=== PATIENT | female | born 1955 | race Caucasian/White ===

== ENCOUNTER 2021-05-25 15:02 | Outpatient (REF) | payer OTHER, SELFPAY ==
--- NOTE | ~2021-05-25 | XR_ITS ---
EXAMINATION: XR CERVICAL SPINE CLINICAL INFORMATION: Neck pain COMPARISON: Cervical spine x-rays 11/11/2014 TECHNIQUE: 4 views of the cervical spine were obtained. FINDINGS: The cervical spine is visualized in its entirety. Similar minimal anterolisthesis of C4 on C5. Alignment is otherwise unremarkable. Normal C1/C2 articulation. Cervical vertebral body heights are maintained. Moderately decreased disc space heights are C5/C6 and C6/C7. Small anterior osteophytes within the mid and lower cervical spine. No prevertebral soft tissue swelling. Visualized lung apices are well aerated. XR/XR cervical spine 3V IMPRESSION: Mild to moderate degenerative changes of the cervical spine.
[2021-05-25 15:37] LABS: MANUAL DIFF FLAG NO
[2021-05-25 16:15] LABS: Basophils Absolute Auto 0.1 X10*3/uL (0.0-0.2); Basophils Percent Auto 0.7 % (0-2); Eosinophils Absolute Auto 0.2 X10*3/uL (0.0-0.4); Hematocrit 39.8 % (37.0-47.0); Hemoglobin 13.1 g/dl (12.0-16.0); Imm Gran Abs Auto 0.02 X10*3/uL (0.00-0.03); Imm Gran Pct Auto 0.2 % (0.0-0.4); Lymphocytes Absolute Auto 2.1 X10*3/uL (1.2-4.9); Lymphocytes Percent Auto 25.4 % (20-40); Mean Corpuscular HGB Conc 32.9 g/dl (31.0-35.0); Mean Corpuscular Hemoglobin 34.9 pg (27.0-33.0); Mean Corpuscular Volume 106.1 fL (80.0-98.0); Mean Platelet Volume 10.3 fL (9.4-12.3); Monocytes Absolute Auto 0.9 X10*3/uL (0.1-1.2); Monocytes Percent Auto 10.6 % (2-11); Neutrophils Absolute Auto 5.1 x10*3/uL (2.0-8.3); Neutrophils Percent Auto 61.1 % (45-73); Platelet Count 313 X10*3/uL (160-400); Red Blood Count 3.75 X10*6/uL (4.20-5.50); Red Cell Distribution Width 11.7 % (11.0-16.0); White Blood Count 8.4 X10*3/uL (4.8-10.8)
[2021-05-25 16:19] LABS: Appearance Urine CLEAR; Color Urine YELLOW; Glucose Urine UA NEG (NEG); Leukocyte Esterase Urine NEG (NEG); Nitrite Urine NEG (NEG); Urine Blood 1+ (NEG); Urine Ketones 5 MG/DL (NEG); Urine Protein TRACE MG/DL (NEG-TRACE)
[2021-05-25 16:27] LABS: Amorphous Sediment Urine TRACE /LPF; Mucus Urine 1+ /LPF; Squamous Epithelial Cell Urine 1+ /LPF; Tyrosine Crystal Urine TRACE /LPF
[2021-05-25 16:28] LABS: WBC Urine 0-2 /HPF (0-4)
[2021-05-25 16:46] LABS: Alanine Aminotransferase 28 U/L (0-31); Albumin Level 4.6 g/dL (3.5-5.0); Alkaline Phosphatase 65 U/L (39-117); Anion Gap 17 (12-20); Aspartate Amino Transferase 34 U/L (5-31); Bilirubin Total 0.6 mg/dL (0.0-1.0); Blood Urea Nitrogen 16 mg/dL (9-16); Carbon Dioxide 26 mmol/L (22-29); Chloride 98 mmol/L (96-108); Cholesterol 249 mg/dL; Estimated Glomerular Filt Rate > 60; Glucose Random 95 mg/dL (60-115); Potassium 4.8 mmol/L (3.3-5.1); Sodium 136 mmol/L (135-145); Total Protein 7.5 g/dL (6.5-8.0)
[2021-05-25 17:00] LABS: Calcium 10.7 mg/dL (8.4-10.2)
== END 2021-05-25 15:03 | disposition home or self-care (01) ==
LOC: HO.XRAY 15:02
PROVIDERS: PCP Internal Medicine; Visit Provider Internal Medicine
DX: Z00.00 Encounter for general adult medical examination without abnormal findings (principal); M54.2 Cervicalgia; Z87.891 Personal history of nicotine dependence
CPT/HCPCS: 36415; 72040; 80053; 81001; 82465; 85025

== ENCOUNTER 2021-05-27 11:17 | Outpatient (REF) | payer OTHER, SELFPAY ==
[2021-05-27 12:40] LABS: Anion Gap 19 (12-20); Blood Urea Nitrogen 16 mg/dL (9-16); C Reactive Protein 7.82 mg/dL (< or = 0.50); Calcium 10.8 mg/dL (8.4-10.2); Carbon Dioxide 25 mmol/L (22-29); Chloride 104 mmol/L (96-108); Cholesterol 268 mg/dL; Estimated Glomerular Filt Rate > 60; Glucose Fasting 103 mg/dL (60-99); HDL Cholesterol 140 mg/dL; LDL Cholesterol Calculated 115 mg/dl; Potassium 5.1 mmol/L (3.3-5.1); Sodium 143 mmol/L (135-145); Triglycerides 66 mg/dL
[2021-05-30 14:42] LABS: PTHI 20 pg/mL (14-64)
== END 2021-05-27 11:18 | disposition home or self-care (01) ==
LOC: HO.LAB 11:17
PROVIDERS: PCP Internal Medicine; Visit Provider Internal Medicine
DX: E78.00 Pure hypercholesterolemia, unspecified (principal); E83.52 Hypercalcemia
CPT/HCPCS: 36415; 80048; 80061; 83970; 86140

== ENCOUNTER 2021-06-23 08:43 | Outpatient (REF) | payer OTHER, SELFPAY ==
--- NOTE | ~2021-06-23 | MR_ITS ---
EXAMINATION: MR CERVICAL SPINE WITHOUT CONTRAST CLINICAL INFORMATION: Neck pain radiating to the bilateral shoulders. Abnormal C-spine x-ray. COMPARISON: Cervical spine radiograph 05/25/2021. TECHNIQUE: MRI of the cervical spine was performed using routine sequences without contrast. FINDINGS: The cervical vertebral bodies maintain normal heights. There is mild anterolisthesis of C4 on C5. Severe disc height loss is seen at C5-C6 and C6-C7. Bone marrow edema centered at the endplates is seen at C5-C6 as well as superiorly at C7. Additional fairly robust marrow edema is seen across the right-sided C5-C6 facets with periarticular edema also present. A mild amount of endplate edema is also noted at the superior endplate of T1 and at the opposing endplates of T1 and T2. The cervical cord signal appears normal. The imaged portions of the intracranial contents and extraspinal soft tissues appear normal. SPINAL LEVELS: C2-C3: No posterior disc abnormality. Severe right facet arthropathy. No spinal canal or neural foraminal stenosis. C3-C4: No posterior disc abnormality. Severe left and mild to moderate right facet arthropathy. No spinal canal or neural foraminal stenosis. C4-C5: Mild disc osteophyte complex with uncovertebral hypertrophy and severe right and mild to moderate left facet arthropathy. No spinal canal stenosis. Mild bilateral neural foraminal stenosis. C5-C6: Disc osteophyte complex resulting in mild spinal canal stenosis. Moderate to severe right and mild left facet arthropathy. Severe bilateral neural foraminal stenosis. C6-C7: Disc osteophyte complex resulting in mild spinal canal stenosis. Bilateral uncovertebral hypertrophy and mild to moderate right facet arthropathy. Mild left neural foraminal stenosis. C7-T1: No posterior disc abnormality. No spinal canal or neural foraminal stenosis. MR/MR cervical spine wo con IMPRESSION: Multilevel degenerative spondylotic changes without significant narrowing the spinal canal. Robust marrow edema seen across the right-sided C5-C6 facets with associated periarticular edema/inflammation also present. Significant subchondral marrow edema seen at C5-C6 endplates and to lesser extent at additional levels. Neural foraminal stenosis appears severe bilaterally at C5-C6.
== END 2021-06-23 08:44 | disposition home or self-care (01) ==
LOC: HO.MRI 08:43
PROVIDERS: PCP Internal Medicine; Visit Provider Internal Medicine
DX: M54.2 Cervicalgia (principal)
CPT/HCPCS: 72141

== ENCOUNTER 2022-07-04 09:12 | Outpatient (REF) | payer OTHER, SELFPAY ==
[2022-07-04 12:14] LABS: Erythrocyte Sedimentation Rate 45 MM/HR (0-20)
[2022-07-04 15:39] LABS: Anion Gap 17 (12-20); Blood Urea Nitrogen 14 mg/dL (9-16); C Reactive Protein 6.32 mg/dL (< or = 0.50); Calcium 10.2 mg/dL (8.4-10.2); Carbon Dioxide 27 mmol/L (22-29); Chloride 100 mmol/L (96-108); Cholesterol 231 mg/dL; Estimated Glomerular Filt Rate > 60; Glucose Fasting 108 mg/dL (60-99); HDL Cholesterol 113 mg/dL; LDL Cholesterol Calculated 108 mg/dl; Potassium 4.7 mmol/L (3.3-5.1); Rheumatoid Factor < 13.0 IU/mL (<15.0); Sodium 139 mmol/L (135-145); TSH reflex Free T4 1.59 uIU/mL (0.32-4.0); Triglycerides 53 mg/dL
[2022-07-05 10:48] LABS: Calcium (PTHI) 9.9 mg/dL (8.6-10.4); PTHI 33 pg/mL (16-77)
[2022-07-05 13:33] LABS: Anti Nuclear Antibody Screen NEGATIVE (NEGATIVE)
[2022-07-06 21:43] LABS: Calcium, Ionized 5.2 mg/dL (4.8-5.6)
== END 2022-07-04 09:13 | disposition home or self-care (01) ==
LOC: HO.HMGCLDS 09:12
PROVIDERS: PCP Internal Medicine; Visit Provider Internal Medicine
DX: Z00.01 Encounter for general adult medical examination with abnormal findings (principal); N95.1 Menopausal and female climacteric states; M81.0 Age-related osteoporosis without current pathological fracture; E83.52 Hypercalcemia; M25.50 Pain in unspecified joint; R79.82 Elevated C-reactive protein (CRP)
CPT/HCPCS: 36415; 80048; 80061; 82306; 82330; 83970; 84443; 85652; 86038; 86039; 86140; 86431

== ENCOUNTER → 2022-09-07 16:18 | Outpatient (BNVA) | payer OTHER, SELFPAY | PROVIDERS: PCP Internal Medicine; Visit Provider Internal Medicine Endocrinology, Diabetes & Metabolism | DX: Z13.89 Encounter for screening for other disorder (principal) ==

== ENCOUNTER 2022-10-10 12:48 | Outpatient (REF) | payer OTHER, SELFPAY ==
--- NOTE | ~2022-10-10 | XR_ITS ---
X-ray bilateral wrists/hands CLINICAL HISTORY: Rheumatoid arthritis. COMPARISON: Radiograph of the left hand 02/16/2012. TECHNIQUE: 4 views of each wrist/hand were obtained. FINDINGS: Right wrist/hand: No acute fractures or subluxation. Moderate joint space narrowing with subcortical sclerosis of the fifth DIP joint with equivocal marginal erosions. Mild joint space narrowing with subcortical sclerosis of the first CMC joint and triscaphe space. Osteophytes noted in the distal third metacarpal. No erosions. No chondrocalcinosis. Left hand/wrist: No acute fractures or subluxation. Mild joint space narrowing and subcortical sclerosis with subtle marginal erosions of the fifth DIP joint. Mild joint space narrowing and subcortical sclerosis of the first CMC joint and triscaphe space. Osteophytes noted in the distal third metacarpal and first DIP joint. In the distal No chondrocalcinosis. XR/XR hand wrist RT IMPRESSION: 1. No acute fractures or subluxation. 2. 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 Suggestion of erosive changes in the bilateral fifth DIP joints. Nonspecific overhanging osteophytes in the distal aspect of the third metacarpals, left greater than right. Constellation of findings suggests superimposed mild inflammatory osteoarthritis within a background of degenerative changes.
--- NOTE | ~2022-10-10 | XR_ITS ---
X-ray bilateral wrists/hands CLINICAL HISTORY: Rheumatoid arthritis. COMPARISON: Radiograph of the left hand 02/16/2012. TECHNIQUE: 4 views of each wrist/hand were obtained. FINDINGS: Right wrist/hand: No acute fractures or subluxation. Moderate joint space narrowing with subcortical sclerosis of the fifth DIP joint with equivocal marginal erosions. Mild joint space narrowing with subcortical sclerosis of the first CMC joint and triscaphe space. Osteophytes noted in the distal third metacarpal. No erosions. No chondrocalcinosis. Left hand/wrist: No acute fractures or subluxation. Mild joint space narrowing and subcortical sclerosis with subtle marginal erosions of the fifth DIP joint. Mild joint space narrowing and subcortical sclerosis of the first CMC joint and triscaphe space. Osteophytes noted in the distal third metacarpal and first DIP joint. In the distal No chondrocalcinosis. XR/XR hand wrist LT IMPRESSION: 1. No acute fractures or subluxation. 2. 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 Suggestion of erosive changes in the bilateral fifth DIP joints. Nonspecific overhanging osteophytes in the distal aspect of the third metacarpals, left greater than right. Constellation of findings suggests superimposed mild inflammatory osteoarthritis within a background of degenerative changes.
[2022-10-10 14:12] LABS: MANUAL DIFF FLAG NO
[2022-10-10 14:51] LABS: Basophils Absolute Auto 0.1 X10*3/uL (0.0-0.2); Basophils Percent Auto 0.9 % (0-2); Eosinophils Absolute Auto 0.3 X10*3/uL (0.0-0.4); Eosinophils Percent Auto 5.7 % (0-4); Hemoglobin 12.8 g/dl (12.0-16.0); Lymphocytes Absolute Auto 1.7 X10*3/uL (1.2-4.9); Lymphocytes Percent Auto 31.1 % (20-40); Mean Corpuscular HGB Conc 34.6 g/dl (31.0-35.0); Mean Corpuscular Hemoglobin 35.8 pg (27.0-33.0); Mean Corpuscular Volume 103.4 fL (80.0-98.0); Monocytes Absolute Auto 0.4 X10*3/uL (0.1-1.2); Monocytes Percent Auto 7.3 % (2-11); Neutrophils Absolute Auto 3.1 x10*3/uL (2.0-8.3); Platelet Count 256 X10*3/uL (160-400); Red Blood Count 3.58 X10*6/uL (4.20-5.50); Red Cell Distribution Width 11.9 % (11.0-16.0); White Blood Count 5.6 X10*3/uL (4.8-10.8)
[2022-10-10 14:57] LABS: Appearance Urine Clear; Color Urine Yellow; Glucose Urine UA Negative (Negative); Leukocyte Esterase Urine Negative (Negative); Nitrite Urine Negative (Negative); Specific Gravity - Urine 1.015 (1.005-1.025); Urine Blood Negative (Negative); Urine Ketones Negative (Negative); Urine Protein Negative (Neg-Trace)
[2022-10-10 15:01] LABS: Bacteria Urine None Seen (None Seen); Hyaline Casts Urine 0-2 /LPF (0-2); RBC Urine 0-2 /HPF (0-2); Squamous Epithelial Cell Urine 0-2 /HPF (0-2); WBC Urine 0-5 /HPF (0-5)
[2022-10-10 15:29] LABS: Total Protein Urine Random < 7 mg/dL (<12)
[2022-10-10 15:34] LABS: Alanine Aminotransferase 49 U/L (0-31); Albumin Level 4.5 g/dL (3.5-5.0); Alkaline Phosphatase 62 U/L (39-117); Anion Gap 16 (12-20); Aspartate Amino Transferase 46 U/L (5-31); Bilirubin Total 0.4 mg/dL (0.0-1.0); Blood Urea Nitrogen 15 mg/dL (9-16); C Reactive Protein 0.58 mg/dL (< or = 0.50); Calcium 9.7 mg/dL (8.4-10.2); Carbon Dioxide 23 mmol/L (22-29); Chloride 101 mmol/L (96-108); Estimated Glomerular Filt Rate > 60; Glucose Random 102 mg/dL (60-115); Phosphorus 3.8 mg/dL (2.7-4.5); Potassium 4.4 mmol/L (3.3-5.1); Sodium 136 mmol/L (135-145); Total Protein 6.6 g/dL (6.5-8.0)
[2022-10-10 15:43] LABS: Erythrocyte Sedimentation Rate 7 MM/HR (0-20)
[2022-10-10 15:58] LABS: Folate 10.8 ng/mL (> or = 4.0); Vitamin B12 1234 pg/mL (200-900)
[2022-10-11 09:09] LABS: HBc Num1 0.06 S/CO (0.00-0.79); HBsAGNum1 0.27 S/CO (0.00-0.99); Hepatitis A Antibody IgM 0.16 Index (0-0.79); Hepatitis B Core Antibody Nonreactive (Nonreactive); Hepatitis B Surface Antigen Negative (Negative); ~HepC Num1 0.06 S/CO (0.00-0.79); ~Hepatitis A Antibody IgM Nonreactive (Nonreactive); ~Hepatitis B Surface Antibody NONREACTIVE (Nonreactive); ~Hepatitis C Antibody Nonreactive (Nonreactive)
[2022-10-11 12:38] LABS: Anti DNA DS Antibody <1 IU/mL; Antibody to SS-A Antigen <1.0 NEG AI (<1.0 NEG); Antibody to SS-B Antigen <1.0 NEG AI (<1.0 NEG); SM/Ribonucleoprotein Ab <1.0 NEG AI (<1.0 NEG); Smith Protein <1.0 NEG AI (<1.0 NEG)
[2022-10-11 12:58] LABS: Lyme Abs Screen <0.90 index
[2022-10-11 13:39] LABS: Complement C3 114 mg/dL (83-193)
[2022-10-12 13:08] LABS: IgA 198 mg/dL (70-320); IgG 747 mg/dL (600-1540); IgM 62 mg/dL (50-300)
[2022-10-12 13:43] LABS: Prot Elec - Albumin 4.5 g/dL (3.8-4.8); Prot Elec - Alpha1 0.3 g/dL (0.2-0.3); Prot Elec - Alpha2 0.7 g/dL (0.5-0.9); Prot Elec - Beta 1 0.3 g/dL (0.4-0.6); Prot Elec - Beta 2 0.3 g/dL (0.2-0.5); Prot Elec - Gamma 0.7 g/dL (0.8-1.7); Prot Elec - Total Protein 6.8 g/dL (6.1-8.1)
[2022-10-12 15:34] LABS: Cyclic Citrullinated Peptide <16 UNITS
[2022-10-12 19:53] LABS: TS Negative Control Passed; TS Panel A 0; TS Panel B 3; TS Positive Control Passed; TSpotTB Negative (Negative)
[2022-10-13 10:18] LABS: Anti Nuclear Antibody Screen NEGATIVE (NEGATIVE)
[2022-10-17 13:39] LABS: DNAds, Crithidia Antibody Negative (Negative)
== END 2022-10-10 12:49 | disposition home or self-care (01) ==
LOC: HO.XRAY 12:48
PROVIDERS: Internal Medicine Endocrinology, Diabetes & Metabolism; PCP Internal Medicine; Visit Provider Student in an Organized Health Care Education/Training Program
DX: M81.0 Age-related osteoporosis without current pathological fracture (principal); M32.9 Systemic lupus erythematosus, unspecified; M06.9 Rheumatoid arthritis, unspecified; R79.82 Elevated C-reactive protein (CRP); D53.9 Nutritional anemia, unspecified; Z11.7 Encounter for testing for latent tuberculosis infection; Z11.59 Encounter for screening for other viral diseases; Z79.52 Long term (current) use of systemic steroids; Z72.89 Other problems related to lifestyle
CPT/HCPCS: 36415; 73110; 73130; 80053; 81001; 82607; 82746; 82784; 84100; 84156; 84165; 85025; 85652; 86038; 86039; 86140; 86160; 86200; 86225; 86235; 86255; 86334; 86481; 86617; 86618; 86704; 86706; 86709; 86803; 87340

== ENCOUNTER 2023-02-06 10:50 | Outpatient (AMB) | payer MEDICARE, SELFPAY ==
[2023-02-06 10:55] VITALS: BP 100/68; PULSE 96; TEMP 36.3; O2SAT 100; BMI 24.3
--- NOTE | 2023-02-06 10:55 | AM.OFFWIN_ITS ---
Intake Vital Signs 02/06/23 10:55 Height 5 ft 4 in Weight 141 lb 6 oz BMI 24.3 BP 100/68 Blood Pressure Location Rt brachial Position Sitting Pulse 96 Pulse Source Pulse Oximeter Temp 97.3 F Temp Source Temporal Artery Scan Pulse Oximetry (%) 100 Intake Visit Reasons: EP ?shingles (lobby) Intake Note: Pt is here c/o possible shingles. Patient Tobacco Use Status: Former Tobacco user (4 years ago) Allergies codeine [CODEINE] Adverse Reaction (Unknown, Unverified 02/06/23 11:28) NAUSEA & VOMITING Medication List - Last Reconciled 02/06/23 by Dylan Hampton MD loratadine (Claritin) 10 mg PO DAILY multivitamin 1 tab PO DAILY Do you need a note to return to daycare/school/sports/work: No HPI EP ?shingles (lobby) HPI Details 67-year-old female presents to the office for a sick visit. Patient re ports that she could be having shingles. She started noticing lesions on the left side of her forehead and scalp over the past week. She woke up this morning up with redness in the left eye and increased tearing. [facility] Medical History (Updated 02/06/23 @ 11:31 by Dylan Hampton MD) Elevated C-reactive protein (CRP) Hypercalcemia Osteoporosis Polyarthralgia Surgical History History of right hip replacement Hx of section Hx of tonsillectomy Family History Father Prostate cancer Bone cancer Mother Cancer Brother Mental health disorder Sister Ovarian cancer Family/Other Multiple sclerosis Social History Household Members: Spouse Household Members Other:: Housing: House Alcohol intake: current Alcohol type: wine Patient Tobacco Use Status: Former Tobacco user (4 years ago) e-Cigarette/Vaping Use: Never Used Current occupational status: employed 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 Corneas clear. Skin Other: Vesicular rash along the C2 C3 dermatome. Assessment & Plan Assessment & Plan (1) Herpes zoster: Code(s): B02.9 - Zoster without complications Plan: Valtrex called in. Fortunately patient has not in much pain. Neurontin 100 mg called in. Eye involvement has to be ruled out. An ophthalmology consult is being scheduled. Coding Level of Care Code Est Pt Level 4 (29695) Diagnoses Herpes zoster B02.9
== END 2023-02-06 11:37 | disposition home or self-care (01) ==
LOC: HO.HMGWI 10:50
PROVIDERS: PCP Internal Medicine
DX: B02.9 Zoster without complications (principal)
CPT/HCPCS: 99214

== ENCOUNTER 2023-08-13 13:57 | Outpatient (AMB) | payer MEDICARE, SELFPAY ==
[2023-08-13 14:29] VITALS: BP 124/72; PULSE 85; TEMP 36.4; O2SAT 97; BMI 26.4
--- NOTE | 2023-08-13 14:29 | MHC.OFFWIV ---
Intake Vital Signs 08/13/23 14:29 Height 5 ft 4 in Weight 154 lb BMI 26.4 BP 124/72 Blood Pressure Location Lt brachial Position Sitting Pulse 85 Pulse Source Pulse Oximeter Temp 97.5 F Temp Source Temporal Artery Scan Pulse Oximetry (%) 97 Oxygen Delivery Method Room Air Intake Visit Reasons: EP Back pain Intake Note: pt is here today for back pain started last Patient Tobacco Use Status: Former Tobacco user (4 years ago) Allergies codeine [CODEINE] Adverse Reaction (Unknown, Verified 08/13/23 14:29) NAUSEA & VOMITING Do you need a note to return to daycare/school/sports/work: No HPI HPI Comments History of Present Illness Details The patient presents to urgent care for evaluation of low back pain. She states that on she started to exercise and that night felt pain and discomfort in her right hip and lower back. She does have a hip replacement and was instructed not to do certain movements which were some of the things she was in fact doing during the day . She was sore and then slept on the couch downstairs. When she awoke she had low back pain and spasm. Patient has been using ibuprofen and then took a leave today for better pain relief. No radiation of pain down the leg no numbness or tingling no bowel or bladder dysfunction. [facility] Medical History (Updated 02/06/23 @ 11:31 by Dylan Hampton MD) Elevated C-reactive protein (CRP) Polyarthralgia Hypercalcemia Osteoporosis Surgical History History of right hip replacement Hx of tonsillectomy Hx of section Family History Father Prostate cancer Bone cancer Mother Cancer Brother Mental health disorder Sister Ovarian cancer Family/Other Multiple sclerosis Social History Household Members: Spouse Household Members Other:: Housing: House Alcohol intake: current Alcohol type: wine Patient Tobacco Use Status: Former Tobacco user (4 years ago) e-Cigarette/Vaping Use: Never Used Current occupational status: employed 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 Cognitive needs: No Hearing needs: No Vision needs: Yes Review of Systems Const Denies weakness Eyes Reports no additional complaints ENT Denies dysphagia Card Reports no additional complaints, Denies dyspnea and Denies dyspnea on exertion Resp Denies cough, Denies hemoptysis, Denies dyspnea and Denies dyspnea on exertion GI Denies dysphagia Denies urinary incontinence Musc Reports back pain, Denies muscle weakness, Denies numbness and Denies tingling Neuro Denies focal weakness, Denies numbness, Denies tingling, Denies paresthesias and Denies weakness Physical Exam Vital Signs: Last Vital Signs Temp 97.5 F 08/13/23 14:29 Pulse 85 08/13/23 14:29 BP 124/72 08/13/23 14:29 Pulse Ox 97 08/13/23 14:29 Oxygen Delivery Method Room Air 08/13/23 14:29 BMI result Body Mass Index 26.4 Const General: healthy appearing and no acute distress Orientation/consciousness: patient oriented x3 Eyes General: appearance normal, both eyes and all related structures Pupils: Equal, round and reactive pupils present Resp Effort & Inspection: normal respiratory effort and able to speak in complete sentences General: Yes no CVA tenderness Back/Spine/Pelvis Back: no CVA tenderness Thoracic/Lumbar Spine: thoracic and lumbar spine normal to inspection, paraspinal muscle tenderness (spasm of paraspinal musculature) on the right greater than left and thoraco-lumbar ROM limited Neuro General: patient oriented x3 and Normal light touch and pain sensation Cranial nerves: Yes Equal, round and reactive pupils present Results AMB Urinalysis, Automated UA Leukoctes 15 Bigg/uL Last Edit by Nidhi Feldman CMA on 08/13/23 14:50 UA Nitrite Negative Last Edit by Nidhi Feldman CMA on 08/13/23 14:50 UA Urobilinogen 0.2 mg/dL Last Edit by Nidhi Feldman CMA on 08/13/23 14:50 UA Protein 15 mg/dL Last Edit by Nidhi Feldman CMA on 08/13/23 14:50 UA pH 6.0 Last Edit by Nidhi Feldman CMA on 08/13/23 14:50 UA Blood 0 Ruddy/uL Last Edit by Nidhi Feldman CMA on 08/13/23 14:50 UA Specific [place] 1.025 Last Edit by Nidhi Feldman CMA on 08/13/23 14:50 UA Ketone Positive Last Edit by Nidhi Feldman CMA on 08/13/23 14:50 UA Bilirubin 0 mg/dL Last Edit by Nidhi Feldman CMA on 08/13/23 14:50 UA Glucose 0 mg/dL Last Edit by Nidhi Feldman CMA on 08/13/23 14:50 Results Reviewed Results Reviewed: Laboratory Last Values Urine pH (Auto) 6.0 08/13/23 14:48 Specific [place] (Auto) 1.025 08/13/23 14:48 Urine Protein (Auto) 15 mg/dL 08/13/23 14:48 Glucose (UA)(Auto) 0 mg/dL 08/13/23 14:48 Urine Ketones (Auto) Positive 08/13/23 14:48 Urine Blood (Auto) 0 Ruddy/uL 08/13/23 14:48 Urine Nitrite (Auto) Negative 08/13/23 14:48 Urine Bilirubin (Auto) 0 mg/dL 08/13/23 14:48 Urine Urobilinogen (Auto) 0.2 mg/dL 08/13/23 14:48 Leukocyte Esterase (Auto) 15 Bigg/uL 08/13/23 14:48 Assessment & Plan Assessment & Plan (1) Back pain: Code(s): M54.9 - Dorsalgia, unspecified Plan Symptoms are likely secondary to doing some exercises that patient was unfamiliar with and likely strained some muscles. Additionally this was compounded by sleeping on the couch and causing some back spasm somewhat remote from the initial discomfort. Will recommend continued use of Advil versus Aleve. Will add Flexeril and recommend treatment with lidocaine patch. Advised follow-up with PCP Orders: Orders AMB Urinalysis Automated Today Z13.9 - Encounter for screening, unspecified Medications: New cyclobenzaprine 5 mg PO TID PRN 10 tabs 0RF muscle spasm lidocaine 5% leave on most painful area for up to 12 hrs 1 patch topical DAILY 15 ea 0RF Coding Level of Care Code Est Pt Level 3 (91546) Diagnoses Back pain M54.9
== END 2023-08-13 15:37 | disposition home or self-care (01) ==
PROVIDERS: PCP Internal Medicine; Visit Provider Emergency Medicine
DX: M54.9 Dorsalgia, unspecified (principal)
CPT/HCPCS: 81003; 99213

== ENCOUNTER 2023-08-16 09:08 | Emergency (ER) | payer MEDICARE, SELFPAY ==
--- NOTE | ~2023-08-16 | XR_ITS ---
EXAMINATION: XR CHEST CLINICAL INFORMATION: Chest pain COMPARISON: None available. TECHNIQUE: 2 views of the chest were obtained. FINDINGS: Lungs grossly clear. No pleural effusions. Heart and pulmonary vessels normal. XR/XR chest 2V IMPRESSION: No active disease.
--- NOTE | ~2023-08-16 | XR_ITS ---
EXAMINATION: XR LUMBOSACRAL SPINE CLINICAL INFORMATION: Low back pain COMPARISON: None available. TECHNIQUE: Three views of the lumbosacral spine. FINDINGS: There is normal lumbar lordosis. Gradient there is grade 1 anterolisthesis L4-L5. Rest of the vertebral alignment is normal. Loss of L5-S1 disc height is noted. Rest the disc heights are normal. No acute fracture, dislocation or lytic process seen. SI joints are symmetrical and normal. The soft tissues are normal. XR/XR lumbar spine 2-3V IMPRESSION: 1. Grade 1 anterolisthesis L4 over L5. 2. Mild degenerative disc changes L5-S1 disc level. No visible acute fracture or dislocation seen.
[2023-08-16 09:25] VITALS: BP 111/59; PULSE 95; RESP 16; TEMP 36.8; O2SAT 97; BMI 26.1
[2023-08-16 13:04] VITALS: BP 115/60; PULSE 85; RESP 18; TEMP 36.9; O2SAT 95
--- NOTE | 2023-08-16 13:06 | ECG_ITS ---
Test Reason : back pain chest pain Blood Pressure : / mmHG Vent. Rate : 075 BPM Atrial Rate : 075 BPM P-R Int : 154 ms QRS Dur : 082 ms QT Int : 378 ms P-R-T Axes : 046 -02 032 degrees QTc Int : 422 ms Normal sinus rhythm Normal ECG When compared with ECG of 27-DEC-2017 16:13, No significant change was found Referred By: Liza Guzman Electronically Signed By:BRIDGETTE ALEXANDER MD
--- NOTE | 2023-08-16 13:07 | ED_ITS ---
HPI - Back Pain/Injury General Chief Complaint: Back Pain/Injury Stated Complaint: Muscle spasms all over Time Seen by Provider: 08/16/23 12:07 Source: patient and RN notes reviewed Mode of arrival: ambulatory Limitations: no limitations History of Present Illness HPI Narrative: This is a 68-year-old female, with a history of osteoporosis, presenting to the emergency department for evaluation of low back muscle spasms x1 week. Patient reports that over the course of this past week she has had muscle spasms that keep her up at night. She states that the pain starts in her back and occasionally radiates down into her bilateral hamstrings. She reports that the muscle spasms or so severe that when she is walking around she gets short of breath. She does endorse left-sided chest pain which she attributes in 2 muscle spasms this morning which radiated into her left shoulder. She denies any recent trauma or injury. She was seen at an urgent care 4 days ago and was given Flexeril which she has been taking without any relief. She denies any fevers, chills, dizziness, lightheadedness, chest pain, shortness of breath, abdominal pain, nausea, vomiting or diarrhea. She denies any urinary or bowel incontinence. No saddle anesthesia. No recent changes in weight, or night sweats. No other complaints or concerns at this time. MD elicited complaint: back pain Similar Symptoms Previously: No Quality: spasming Location: lumbar spine Radiation: buttocks, left upper leg and right upper leg Exacerbating factors: movement Relieving factors: immobilization Associated symptoms: weakness and fatigue Related Data Home Medications Medication Instructions Recorded Confirmed loratadine 10 mg tablet (Claritin) 10 mg PO DAILY 06/23/22 multivitamin 1 tab PO DAILY 06/23/22 Previous Rx's Medication Instructions Recorded cyclobenzaprine 5 mg tablet 5 mg PO TID PRN muscle spasm #10 08/13/23 tabs lidocaine 5 % topical patch 1 patch topical DAILY #15 ea 08/13/23 lidocaine 5 % topical patch 1 patch topical DAILY #30 ea 08/16/23 methocarbamol 750 mg tablet 1,500 mg (2 x 750 mg) PO Q8H 72 08/16/23 hours #18 tabs prednisone 20 mg tablet 40 mg (2 x 20 mg) PO DAILY 5 days 08/16/23 #10 tabs Allergies Allergy/AdvReac Type Severity Reaction Status Date / Time codeine [CODEINE] AdvReac Unknown NAUSEA & Verified 08/13/23 14:29 VOMITING Review of Systems 2 Review of Systems: Yes all other systems are reviewed and are negative Constitutional: Constitutional: Reports as per [facility] Past Medical History Attestation statement: The following information was validated with the patient. Medical History Elevated C-reactive protein (CRP) Polyarthralgia Hypercalcemia Osteoporosis Surgical History History of right hip replacement Hx of tonsillectomy Hx of section Family History Family History Father Prostate cancer Bone cancer Mother Cancer Brother Mental health disorder Sister Ovarian cancer Family/Other Multiple sclerosis Social History Social History Household Members: Spouse Household Members Other:: Housing: House Alcohol intake: current Alcohol type: wine Patient Tobacco Use Status: Former Tobacco user (4 years ago) e-Cigarette/Vaping Use: Never Used Current occupational status: employed 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 Cognitive needs: No Hearing needs: No Vision needs: Yes Physical Exam 2 Vital Signs: Vital Signs: Last Vital Signs Temp 97.9 F 08/16/23 15:41 Pulse 76 08/16/23 15:41 Resp 16 08/16/23 15:41 BP 132/56 L 08/16/23 15:41 Pulse Ox 96 08/16/23 15:41 O2 Del Method Room Air 08/16/23 15:41 BMI result Body Mass Index 26.1 Const: General: cooperative, comfortable and no acute distress O rientation/consciousness: patient oriented x3 Limitations: no limitations HEENT: Head: Yes normal to inspection, Yes normocephalic and Yes atraumatic Ears: hearing grossly normal bilaterally General nose exam: Normal external nose present Face and sinus: Yes normal facial exam Mouth: Normal oral and palatal mucosa present, oropharynx normal and moist mucous membranes Throat: Yes posterior oropharynx normal Eyes: General: appearance normal, both eyes and all related structures E yelids: Yes eyelids normal Conjunctivae: conjunctivae normal Sclerae: s clerae normal Pupils: Equal, round and reactive pupils present EOM: EOMs intact bilaterally Neck: Neck: Yes normal visual inspection, Yes full ROM and Yes no lymphadenopathy Lymphatic: no lymphadenopathy noted Chest: Chest palpation & inspection: normal inspection of the chest Resp: Effort & Inspection: normal respiratory effort and able to speak in complete sentences Auscultation: clear to auscultation bilaterally, no crackles, no rales, no rhonchi and no wheezes Cardio: Rate: regular rate Rhythm: regular rhythm Heart sounds: S1 normal heart sound present and S2 normal heart sound present GI: Inspection: Yes normal to inspection Back/Spine/Pelvis: Other: Tenderness palpation along the lumbar midline spine and paraspinous muscles. Negative straight leg raise bilaterally. Distal sensation circulation intact strength 5/5 in lower extremities Skin: General skin exam: no rashes or lesions noted Trauma: no lacerations or abrasions Wounds: no wounds Neuro: General: patient oriented x3 and moves all extremities Cranial nerves: Yes Equal, round and reactive pupils present Extrem: General: Yes normal to inspection Right upper extremity: normal to inspection Left upper extremity: normal to inspection Right lower extremity: normal to inspection Left lower extremity: normal to inspection Course Reevaluation(s) Reevaluation #1: Labs returned, patient has no leukocytosis, H&H stable. No evidence of rhabdomyolysis, chemistry within normal limits, slight hyperglycemia at 1:30 a.m., calcium slightly elevated at 10.6, CPK 18, troponin less than 2.7 x 2. BNP 16. Urine with small leuk esterases, she is not experiencing any urinary symptoms, and does not appear to be infected at this time. Patient tested negative for flu, RSV, and COVID. Lumbar spine x-ray revealing Grade 1 anterolisthesis L4 over L5. As well as degenerative disc changes at L5-S1. EKG nondiagnostic. Symptoms are likely due to muscle spasms as well as degenerative disc disease with associated lumbar radiculopathy. Discussed this finding with patient. Patient discharged on prednisone, muscle relaxants. Advised to follow-up with primary care physician as she may need further workup including MRI/physical therapy. Patient given return precautions. She understands agrees with plan. Patient stable for discharge. Medications Administered Discontinued Medications Generic Name Dose Route Start Last Admin Trade Name Freq PRN Reason Stop Dose Admin Diazepam 1 mg 08/16/23 13:44 08/16/23 14:06 Diazepam 2 Mg Tablet PO 08/16/23 13:45 1 mg ONCE ONE Administration Sodium Chloride 1,000 mls @ 999 mls/hr 08/16/23 14:15 08/16/23 15:11 Ns IV 08/16/23 15:15 Infused .Q1H1M LINSEY Infusion Sodium Chloride 1,000 mls @ 999 mls/hr 08/16/23 15:35 08/16/23 16:46 Ns IV 08/16/23 16:35 Infused .Q1H1M ONE Infusion Medical Decision Making Medical Decision Making [facility] Narrative: This is a 68-year-old female, with a history of osteoporosis, presenting to the emergency department for evaluation of back pain x1 week. On arrival, vital signs within normal limits. She is nontoxic appearing. On examination, she is tenderness palpation along the lumbar midline spine and paraspinous muscles, negative straight leg raise. Patient endorses weakness in her lower extremities as well as an episode of left-sided chest pain and shoulder pain which occurred this morning. Abdomen is soft and nontender. This patient presents with back pain most consistent with lumbar spasms, however given mother symptoms, will obtain labs to rule out ZAIDA, ACS given left-sided chest pain and weakness. Presentation not consistent with malignancy (lack of history of malignancy, lack of B symptoms), fracture (no trauma), cauda equina syndrome (no bowel or urinary incontinence/retention, no saddle anesthesia), pyelonephritis (afebrile, no CVAT, no urinary symptoms). Plan: Labs, EKG, chest x-ray, lumbar x-ray, Valium p.o. Differential Diagnosis Differential Diagnoses: The differential diagnosis associated with the presentation includes See above Admission/Observation Consideration of admission/observation: Escalation of care including admission/observation considered Patient would have been admitted to the hospital had her work up had any findings where hospital admission was appropriate and her clinical presentation warranted hospital admission. Lab Data [facility] Lab Attestation statement: I reviewed the patient's lab results. See course comment 08/16/23 13:54 08/16/23 13:54 Labs: Lab Results 08/16/23 08/16/23 08/16/23 Range/Units 13:54 13:57 16:57 WBC 9.0 (4.8-10.8) X10*3/uL RBC 3.44 L (4.20-5.50) X10*6/uL Hgb 12.5 (12.0-16.0) g/dl Hct 36.4 L (37.0-47.0) % MCV 105.8 H (80.0-98.0) fL MCH 36.3 H (27.0-33.0) pg MCHC 34.3 (31.0-35.0) g/dl RDW 11.8 (11.0-16.0) % Plt Count 342 D (160-400) X10*3/uL MPV 9.5 (9.4-12.3) fL Immature Gran % (Auto) 0.4 (0.0-0.4) % Neut % (Auto) 70.5 (45-73) % Lymph % (Auto) 14.8 L (20-40) % [place] % (Auto) 12.6 H (2-11) % Eos % (Auto) 1.1 (0-4) % Baso % (Auto) 0.6 (0-2) % Lymph # (Auto) 1.3 (1.2-4.9) X10*3/uL [place] # (Auto) 1.1 (0.1-1.2) X10*3/uL Eos # (Auto) 0.1 (0.0-0.4) X10*3/uL Baso # (Auto) 0.1 (0.0-0.2) X10*3/uL Abs Immat Gran (auto) 0.04 H (0.00-0.03) X10*3/uL Absolute Neuts (auto) 6.4 (2.0-8.3) x10*3/uL Absolute Nucleated RBC 0.000 (0.0-0.012) X10*3/uL Nucleated RBC % (auto) 0.0 (0.0-0.2) /100WBC Sodium 135 (135-145) mmol/L Potassium 4.3 (3.3-5.1) mmol/L Chloride 97 (96-108) mmol/L Carbon Dioxide 26 (22-29) mmol/L Anion Gap 16 (12-20) BUN 13 (9-16) mg/dL Creatinine 0.61 (0.5-1.4) mg/dL Estim Creat Clear Calc 85.3 Estimated GFR > 60 Random Glucose 130 H (60-115) mg/dL Calcium 10.6 H D (8.4-10.2) mg/dL Magnesium 1.9 (1.6-2.6) mg/dL Total Bilirubin 0.3 (0.0-1.0) mg/dL Direct Bilirubin 0.2 (0.0-0.5) mg/dL AST 24 (5-31) U/L ALT 31 (0-31) U/L Alkaline Phosphatase 67 (39-117) U/L Total Creatine Kinase 18 L (26-140) U/L Troponin I High Sens 7.3 < 2.7 D (<3.5-17.0) ng/L B-Natriuretic Peptide 16 (<100) pg/mL Total Protein 7.9 (6.5-8.0) g/dL Albumin 4.0 (3.5-5.0) g/dL Urine Color Dark Yellow Urine Appearance Cloudy Urine pH 6.0 (5.0-9.0) Ur Specific [place] 1.020 (1.005-1.025) Urine Protein 30 (1+) H (Neg-Trace) mg/dL Urine Glucose (UA) Negative (Negative) mg/dL Urine Ketones Trace (Negative) mg/dL Urine Blood Negative (Negative) Urine Nitrite Negative (Negative) Ur Leukocyte Esterase Small (1+) H (Negative) Urine RBC 0-2 (0-2) /HPF Urine WBC 0-5 (0-5) /HPF Ur Squamous Epith Cells 6-10 (0-2) /HPF Urine Bacteria None Seen (None Seen) Hyaline Casts 11-20 (0-2) /LPF Granular Casts Present Influenza Type A (PCR) NEGATIVE (Negative) Influenza Type B (PCR) NEGATIVE (Negative) RSV RNA Qual (PCR) NEGATIVE (Negative) SARS-CoV-2 RNA (RT-PCR) NEGATIVE (Negative) Independent Interpretation I performed an independent interpretation of an: EKG Interpretation: EKG normal sinus rhythm at a ventricular rate of 75 beats per minute, no ST elevation or depression. KS interval 154, QTC 422 Radiology Impression Discussion of test interpretation with radiology: I have reviewed the radiologist's reading. Radiologist Impression: EXAMINATION: XR LUMBOSACRAL SPINE CLINICAL INFORMATION: Low back pain COMPARISON: None available. TECHNIQUE: Three views of the lumbosacral spine. FINDINGS: There is normal lumbar lordosis. Gradient there is grade 1 anterolisthesis L4-L5. Rest of the vertebral alignment is normal. Loss of L5-S1 disc height is noted. Rest the disc heights are normal. No acute fracture, dislocation or lytic process seen. SI joints are symmetrical and normal. The soft tissues are normal. XR/XR lumbar spine 2-3V IMPRESSION: 1. Grade 1 anterolisthesis L4 over L5. 2. Mild degenerative disc changes L5-S1 disc level. No visible acute fracture or dislocation seen. Dictated By: Sanket Tobias MD EXAMINATION: XR CHEST CLINICAL INFORMATION: Chest pain COMPARISON: None available. TECHNIQUE: 2 views of the chest were obtained. FINDINGS: Lungs grossly clear. No pleural effusions. Heart and pulmonary vessels normal. XR/XR chest 2V IMPRESSION: No active disease. Dictated By: Bossman Troncoso MD Discharge Plan Discharge Clinical Impression: Lumbar radiculopathy, Back pain, Anterolisthesis of lumbar spine, Degenerative disc disease at L5-S1 level Patient Disposition: Home, Self-Care Instructions: Acute Low Back Pain (ED), Muscle Spasm (ED), Back Pain (ED) Additional Instructions: You were seen in the emergency department due to muscle spasms. Your workup today was reassuring. Your x-ray of your lumbar spine does show evidence of degenerative changes as well as grade 1 anterolisthesis at L4 over L5. This is a slight disc slippage. Your EKG, chest x-ray, as well as your labs were reassuring. Please take prescribed medication as directed. Please avoid taking NSAIDs while taking prednisone as this increases irritation in your stomach lining, as well as increase his chance for bleeding. Take muscle relaxants as prescribed, please be advised that this can cause drowsiness, do not drink alcohol or drive while taking this medication. Gentle stretching, range of motion, as well as massage can also help with your symptoms. Apply lidocaine patches as needed. Do not apply ice or heat directly to the patches. Follow-up with your primary care physician as a referral to physical therapy as well as additional imaging may be warranted. If any new or worsening symptoms occur including but not limited to worsening pain, numbness and tingling into your groin, urinary or bowel incontinence, please return for re-evaluation. Prescriptions: New methocarbamol 750 mg tablet 1,500 mg PO Q8H 3 Days Qty: 18 0RF prednisone 20 mg tablet 40 mg PO DAILY 5 Days Qty: 10 0RF lidocaine 5 % adhesive patch,medicated 1 patch topical DAILY Qty: 30 0RF Rx Instructions: leave on most painful area for up to 12 hrs No Action multivitamin Tablet 1 tab PO DAILY loratadine [Claritin] 10 mg tablet 10 mg PO DAILY cyclobenzaprine 5 mg tablet 5 mg PO TID PRN (Reason: muscle spasm) Qty: 10 0RF lidocaine 5 % adhesive patch,medicated 1 patch topical DAILY Qty: 15 0RF Rx Instructions: leave on most painful area for up to 12 hrs Interventions: ED Discharge Assessment Last Done: 08/16/23 18:17 Discharge Date/Time: 08/16/23 18:24
[2023-08-16 14:05] LABS: MANUAL DIFF FLAG NO
[2023-08-16] MEDS: diazePAM 2 MG TABLET 1 MG PO (14:06)
[2023-08-16 14:07] LABS: Appearance Urine Cloudy; Color Urine Dark Yellow; Glucose Urine UA Negative (Negative); Leukocyte Esterase Urine Small (1+) (Negative); Nitrite Urine Negative (Negative); UMIC TRIGGER UACC YES; Urine Blood Negative (Negative); Urine Ketones Trace mg/dL (Negative); Urine Protein 30 (1+) mg/dL (Neg-Trace)
[2023-08-16] MEDS: 0.9 % Sodium Chloride 1,000 ML 999 ML IV ×2 (14:10→15:39)
[2023-08-16 14:12] LABS: Basophils Absolute Auto 0.1 X10*3/uL (0.0-0.2); Basophils Percent Auto 0.6 % (0-2); Eosinophils Absolute Auto 0.1 X10*3/uL (0.0-0.4); Eosinophils Percent Auto 1.1 % (0-4); Hematocrit 36.4 % (37.0-47.0); Hemoglobin 12.5 g/dl (12.0-16.0); Imm Gran Abs Auto 0.04 X10*3/uL (0.00-0.03); Imm Gran Pct Auto 0.4 % (0.0-0.4); Lymphocytes Absolute Auto 1.3 X10*3/uL (1.2-4.9); Lymphocytes Percent Auto 14.8 % (20-40); Mean Corpuscular HGB Conc 34.3 g/dl (31.0-35.0); Mean Corpuscular Hemoglobin 36.3 pg (27.0-33.0); Mean Corpuscular Volume 105.8 fL (80.0-98.0); Mean Platelet Volume 9.5 fL (9.4-12.3); Monocytes Absolute Auto 1.1 X10*3/uL (0.1-1.2); Monocytes Percent Auto 12.6 % (2-11); Neutrophils Absolute Auto 6.4 x10*3/uL (2.0-8.3); Neutrophils Percent Auto 70.5 % (45-73); Platelet Count 342 X10*3/uL (160-400); Red Blood Count 3.44 X10*6/uL (4.20-5.50); Red Cell Distribution Width 11.8 % (11.0-16.0)
[2023-08-16 14:15] LABS: Bacteria Urine None Seen (None Seen); Granular Casts Urine Present; RBC Urine 0-2 /HPF (0-2); UACC Culture Trigger YES; WBC Urine 0-5 /HPF (0-5)
[2023-08-16 14:24] LABS: Alanine Aminotransferase 31 U/L (0-31); Alkaline Phosphatase 67 U/L (39-117); Anion Gap 16 (12-20); Aspartate Amino Transferase 24 U/L (5-31); Bilirubin Direct 0.2 mg/dL (0.0-0.5); Bilirubin Total 0.3 mg/dL (0.0-1.0); Blood Urea Nitrogen 13 mg/dL (9-16); Calcium 10.6 mg/dL (8.4-10.2); Carbon Dioxide 26 mmol/L (22-29); Chloride 97 mmol/L (96-108); Creatinine Clr Calc Pharmacy 85.3; Estimated Glomerular Filt Rate > 60; Glucose Random 130 mg/dL (60-115); Magnesium 1.9 mg/dL (1.6-2.6); Potassium 4.3 mmol/L (3.3-5.1); Sodium 135 mmol/L (135-145); Total Protein 7.9 g/dL (6.5-8.0)
[2023-08-16 14:27] LABS: B Type Natriuretic Peptide 16 pg/mL (<100); Troponin-I High Sensitivity 7.3 ng/L (<3.5-17.0)
[2023-08-16 14:55] LABS: Influenza A PCR NEGATIVE (Negative); Influenza B PCR NEGATIVE (Negative); Resp Syncy Virus RNA Qual PCR NEGATIVE (Negative); SARS COV2 PCR INHOUSE NEGATIVE (Negative)
[2023-08-16 15:41] VITALS: BP 132/56; PULSE 76; RESP 16; TEMP 36.6; O2SAT 96
[2023-08-16 17:30] LABS: Troponin-I High Sensitivity < 2.7 ng/L (<3.5-17.0)
== END 2023-08-16 18:24 | disposition home or self-care (01) ==
PROVIDERS: Physician Assistant Medical; Emergency Provider Emergency Medicine; PCP Internal Medicine
DX: M51.17 Intervertebral disc disorders with radiculopathy, lumbosacral region (principal); M62.830 Muscle spasm of back; R07.89 Other chest pain; M54.50 Low back pain, unspecified; R06.02 Shortness of breath; M79.605 Pain in left leg; M79.604 Pain in right leg; Z20.822 Contact with and (suspected) exposure to COVID-19; Z11.52 Encounter for screening for COVID-19; Z79.899 Other long term (current) drug therapy
CPT/HCPCS: 0241U; 36415; 71046; 72100; 80048; 80076; 81001; 82550; 83735; 83880; 84484; 85025; 87086; 87147; 93005; 96360; 96361; 99284

== ENCOUNTER → 2023-08-16 13:06 | Outpatient (BNV) | payer MEDICARE, SELFPAY | PROVIDERS: Emergency Provider Emergency Medicine; PCP Internal Medicine; Visit Provider Internal Medicine Cardiovascular Disease | DX: R07.9 Chest pain, unspecified (principal) | CPT/HCPCS: 93010 ==

== ENCOUNTER 2023-08-29 10:26 | Outpatient (AMB) | payer MEDICARE, SELFPAY ==
[2023-08-29 10:41] VITALS: BP 122/74; PULSE 79; O2SAT 95; BMI 26.0
--- NOTE | 2023-08-29 10:41 | A.OFFPC_ITS ---
Vital Signs 08/29/23 10:41 Height 5 ft 4 in Weight 151 lb 8 oz BMI 26.0 BP 122/74 Blood Pressure Location Rt brachial Position Sitting Pulse 79 Pulse Source Pulse Oximeter Pulse Oximetry (%) 95 Oxygen Delivery Method Room Air Intake Visit Reasons: [facility] back pain Intake Note: Pt is here today for Hospital discharge follow up on back pain. Allergies codeine [CODEINE] Adverse Reaction (Unknown, Verified 08/29/23 11:25) NAUSEA & VOMITING Medication List - Last Reconciled 08/29/23 by Pauly Fiore MD multivitamin 1 tab PO DAILY Tobacco use date assessed: 08/29/23 Fall risk assessment: No Falls in past year Last assessed Fall Risk: 08/29/23 Dental Screening Dental Screen Date: 08/29/23 Did you have a dental visit in the last 12 months?: Yes Did you have a dental problem in the last 6 months where you did not have access to dental care?: No Was dental information given to patient?: Patient has dentist HPI [facility] back pain HPI Details 68-year-old female, with a history of os teoporosis, here today for follow-up after recent ER visit complaining of sudden onset of low back pain mainly on the right side accompanied by muscle spasm. Patient states that he was just bending down and picking up something when he felt something in her right lower back.. Labs done at the ER showed no leukocytosis, H&H stable, . no evidence of rhabdomyolysis with CPK normal, chemistry within normal limits., calcium slightly elevated at 10.6, troponin less than 2.7 x 2. BNP 16. Urine with small leukoesterases, without any urinary symptoms. She tested negative for flu, RSV, and COVID. Lumbar spine x-ray revealing Grade 1 anterolisthesis L4 over L5. As well as degenerative disc changes at L5-S1. EKG nondiagnostic. She was prescribed prednisone for 5 days, and given a muscle relaxant, which has helped. Still gets occasional muscle spasm in her right lower back, but pain is almost gone. However she still hesitant to do any bending or lifting, afraid that she might re-injure her self again [facility] Medical History Elevated C-reactive protein (CRP) Polyarthralgia Hypercalcemia Osteoporosis Surgical History History of right hip replacement Hx of tonsillectomy Hx of section Family History Father Prostate cancer Bone cancer Mother Cancer Brother Mental health disorder Sister Ovarian cancer Family/Other Multiple sclerosis Social History Household Members: Spouse Household Members Other:: Housing: House Alcohol intake: current Alcohol type: wine Patient Tobacco Use Status: Former Tobacco user (4 years ago) e-Cigarette/Vaping Use: Never Used service: No Current occupational status: employed 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 1. Little interest or pleasure in doing things: not at all 2. Feeling down, depressed, or hopeless: not at all 3. Trouble falling or staying asleep, or sleeping too much: not at all 4. Feeling tired or having little energy: not at all 5. Poor appetite or overeating: not at all 6. Feeling bad about yourself - or that you are a failure or have let yourself or your family down: not at all 7. Trouble concentrating on things, such as reading the newspaper or watching television: not at all 8. Moving or speaking so slowly that other people could have noticed. Or the opposite - being so fidgety or restless that you have been moving around a lot more than usual: not at all 9. Thoughts that you would be better off or of hurting yourself in some way: not at all Total score: 0 Depression Screening Interpretation: Negative Depression Screening Done: Yes 15331 - PHQ-9 Billing: Yes Source: Developed by Drs. Terrence Lomax, Nori Hay, Ceasar Roldan and colleagues, with an educational davin from [employer]. Thrive Questionnaire Date Thrive assessed: 08/29/23 I am a: Patient What is your living situation today?: I have a steady place to live Within the past 12 months, did the food you bought not last and you didn't have the money to get more?: Never true Within the past 12 months, did you worry whether your food would run out before you got money to buy more?: Never true Do you have trouble paying for medicines?: No Do you have trouble getting transportation to medical appointments?: No Do you have trouble paying your heating and electricity bill?: No Do you have trouble taking care of your child, family member or friend?: No Do you have trouble with day-to-day activities such as bathing, preparing meals, shopping, managing finances, etc.?: No Are you currently unemployed and looking for a job?: No Are you interested in more education?: No Please select the resources that you would like help with: None Currently or been in a relationship where the following occur: no concerns reported THRIVE Score: 0 AUDIT C Alcohol Use Questionnaire (AUDIT-C) 1. How often do you have a drink containing alcohol?: Monthly or less 2. How many drinks containing alcohol do you have on a typical day when you are drinking?: 1 or 2 3. How often do you have six or more drinks on one occasion?: Never Total Score: 1 Score Reviewed/Action Taken: Yes SATNAM-7 AMB Questionnaire SATNAM-7 Date SATNAM - 7 assessed: 08/29/23 Feeling nervous, anxious, or on edge: 0 = Not at all Not being able to stop or control worryin = Not at all Worrying too much about different things: 0 = Not at all Trouble relaxin = Not at all Being so restless that it is hard to sit still: 0 = Not at all Becoming easily annoyed or irritable: 0 = Not at all Feeling afraid as if something awful might happen: 0 = Not at all Total SATNAM-7 score (0-4 normal; 5-9 mild; 10-14 moderate; 15-21 severe): 0 Source: Developed by Drs. Terrence Lomax, Nori Hay, Ceasar Roldan and colleagues, with an educational davin from [employer]. SATNAM-7 Assessment Billing SATNAM-7 Assessment Tool: SATNAM-7 Assessment 91498 Review of Systems Const All systems reviewed & are unremarkable except as noted in HPI and below Physical exam (Primary Care) Vital Signs: Last Vital Signs Pulse 79 08/29/23 10:41 BP 122/74 08/29/23 10:41 Pulse Ox 95 08/29/23 10:41 Oxygen Delivery Method Room Air 08/29/23 10:41 BMI result Body Mass Index 26.0 Tobacco/Smoking Status: Tobacco use Status Tobacco use date assessed 08/29/23 08/29/23 10:45 Patient Tobacco Use Status Former Tobacco user (4 years 08/29/23 10:45 ago) e-Cigarette/Vaping Use Never Used 08/29/23 10:45 PHQ-9: PHQ-9 Score PHQ-9: Total score 0 08/29/23 11:24 Depression Screening Interpretation: Negative Thrive Assessment: Date of Thrive Assessment Date Thrive assessed 08/29/23 08/29/23 10:54 Currently or been in a relationship where the following occur: no concerns reported Const Other: Alert oriented x3, ambulatory normal gait Orientation/consciousness: patient oriented x3 Neck Neck: Yes full ROM, Yes no lymphadenopathy and Yes supple Resp Auscultation: clear to auscultation bilaterally Cardio Other: S1-S2 present regular rate and rhythm Back/Spine/Pelvis Thoracic/Lumbar Spine: thoraco-lumbar ROM normal, straight leg raise negative bilaterally and No paraspinal muscle tenderness Skin General skin exam: no rashes or lesions noted Neuro General: patient oriented x3, gait normal, moves all extremities and no focal motor deficits Assessment and Plan Assessment & Plan (1) Lumbago due to displacement of intervertebral disc: Code(s): M51.26 - Other intervertebral disc displacement, lumbar region Plan: Continue with application of local heat to lower back as needed. Referred for p hysical therapy Orders: Orders PT Evaluation and Treatment 08/29/23 M51.26 - Other intervertebral disc displacement, lumbar region Coding Level of Care Code Est Pt Level 3 (10775) Diagnoses Lumbago due to displacement of intervertebral disc M51.26 Additional Codes SATNAM-7 Assessment Billing - SATNAM-7 Assessment Tool: SATNAM-7 Assessment 62003 ([id number])
== END 2023-08-29 14:14 | disposition home or self-care (01) ==
PROVIDERS: PCP Internal Medicine; Visit Provider Internal Medicine
DX: M51.26 Other intervertebral disc displacement, lumbar region (principal)
CPT/HCPCS: 99213

== ENCOUNTER 2023-10-29 09:12 | Outpatient (AMB) | payer MEDICARE, SELFPAY ==
[2023-10-29 10:15] VITALS: BP 126/76; PULSE 80; TEMP 36.4; O2SAT 97; BMI 25.9
--- NOTE | 2023-10-29 10:15 | AM.OFFWIN_ITS ---
Intake Vital Signs 10/29/23 10:15 Height 5 ft 4 in Weight 151 lb BMI 25.9 BP 126/76 Blood Pressure Location Lt brachial Position Sitting Pulse 80 Pulse Source Pulse Oximeter Temp 97.6 F Temp Source Temporal Artery Scan Pulse Oximetry (%) 97 Oxygen Delivery Method Room Air Intake Visit Reasons: Ep right knee pain , did not fall Intake Note: pt is here today for rt knee pain started 2 weeks ago Patient Tobacco Use Status: Former Tobacco user Allergies codeine [CODEINE] Adverse Reaction (Unknown, Verified 10/29/23 10:18) NAUSEA & VOMITING Do you need a note to return to daycare/school/sports/work: No HPI HPI Comments History of Present Illness Details Patient presents to the walk-in today for sick visit Complaining of right knee pain for last 2 weeks. Denies inciting injury. Does report that she has been walking more than normal and has been starting to do work out in the yard Pain with standing and walking, worse when she wakes up in the morning. [facility] Medical History Elevated C-reactive protein (CRP) Polyarthralgia Hypercalcemia Osteoporosis Surgical History History of right hip replacement Hx of tonsillectomy Hx of section Family History Father Prostate cancer Bone cancer Mother Cancer Brother Mental health disorder Sister Ovarian cancer Family/Other Multiple sclerosis Social History Household Members: Spouse Household Members Other:: Housing: House Alcohol intake: current Alcohol type: wine Patient Tobacco Use Status: Former Tobacco user e-Cigarette/Vaping Use: Never Used service: No Current occupational status: employed 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 Answers questions appropriately. Fully engaged in examination. Skin: warm, dry, intact HEENT: Normocephalic. Hearing intact. Cardiac: External chest normal in appearance. Respiratory: No cough, audible wheezing or stridor. Abdomen: without gross distension. MS: Right knee: Full range of motion, minimally tender to palpation medially. Neurological: Oriented to person, place, time and situation. Thought process intact. No gait abnormalities appreciated. Psychiatric: Appropriate mood and affect. Good judgment and insight. Results Reviewed Results Reviewed: X-ray ordered independently reviewed: No fracture or dislocation. Assessment & Plan Assessment & Plan (1) Right knee sprain: Code(s): S83.91XA - Sprain of unspecified site of right knee, initial encounter Plan Right knee x-ray ordered independently reviewed no fracture or dislocation. Brace applied to right knee. Patient advised on use. Celebrex 100 mg p.o. b.i.d.. Patient advised on cautions for use. Do not take with any other nonsteroidal anti-inflammatory medications. Referral placed for Orthopedics. Follow up with Orthopedic, PCP or return here for any new or worsening symptoms. All questions and concerns were answered patient agrees to the plan. Orders: Referrals Orthopedics Referral S83.91XA - Sprain of unspecified site of right knee, initial encounter Medications: New celecoxib (Celebrex) 100 mg PO BID PRN 20 caps 0RF pain Coding Level of Care Code Est Pt Level 4 (37068) Diagnoses Right knee sprain S83.91XA
== END 2023-10-29 11:28 | disposition home or self-care (01) ==
PROVIDERS: PCP Internal Medicine; Visit Provider Registered Nurse Emergency
DX: S83.91XA Sprain of unspecified site of right knee, initial encounter (principal)
CPT/HCPCS: 99214

== ENCOUNTER 2023-10-29 10:36 | Outpatient (REF) | payer MEDICARE, SELFPAY ==
--- NOTE | ~2023-10-29 | XR_ITS ---
EXAMINATION: XR KNEE, RIGHT CLINICAL INFORMATION: Right knee pain COMPARISON: None available. TECHNIQUE: Four views of the right knee. FINDINGS: Tricompartmental degenerative changes are present. There is chondrocalcinosis involving both the new medial and lateral menisci. Some mild joint space is narrowing in all compartments. No significant joint effusion is present. No fractures. XR/XR knee RT 4V IMPRESSION: Tricompartmental degenerative changes with chondrocalcinosis.
== END 2023-10-29 10:37 | disposition home or self-care (01) ==
LOC: HO.HMGCX 10:36
PROVIDERS: PCP Internal Medicine; Visit Provider Registered Nurse Emergency
DX: M25.561 Pain in right knee (principal)
CPT/HCPCS: 73564

== ENCOUNTER 2023-11-20 10:51 | Outpatient (AMB) | payer MEDICARE, SELFPAY ==
[2023-11-20 10:54] VITALS: BMI 25.9
--- NOTE | 2023-11-20 10:54 | MHC.OFFVIS ---
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 The patient also reports intermittent pain in her left knee. Patient reports her pain has been going on for about 2 months and is a 1 on the 1-10 pain scale. She is using brace, ice and heat for the pain with a little relief. She states she has been walking up to 5 miles per day for exercise. She denies any locking or giving way. She denies surgery,injections injury. Allergies codeine [CODEINE] Adverse Reaction (Unknown, Verified 11/20/23 11:00) NAUSEA & VOMITING Medication List - Last Reconciled 11/22/23 by Malachi Toribio MD meloxicam 15 mg PO DAILY PRN multivitamin 1 tab PO DAILY PFSH Medical History Elevated C-reactive protein (CRP) Polyarthralgia Hypercalcemia Osteoporosis Surgical History History of right hip replacement Hx of tonsillectomy Hx of section Family History Father Prostate cancer Bone cancer Mother Cancer Brother Mental health disorder Sister Ovarian cancer Family/Other Multiple sclerosis Social History Household Members: Spouse Household Members Other:: Housing: House Alcohol intake: current Alcohol type: wine Patient Tobacco Use Status: Former Tobacco user e-Cigarette/Vaping Use: Never Used service: No Current occupational status: employed 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 Cognitive needs: No Hearing needs: No Vision needs: Yes Physical Exam Vital Signs: BMI result Body Mass Index 25.9 Const Other: Well-nourished well-developed very friendly female awake alert and oriented x3 in no acute distress Extrem Other: Bilateral lower extremity examination shows good capillary refill, no skin lesions noted, normal sensation light touch Right knee examination shows a minimal effusion, mild crepitus with range of motion, negative Jaxson's test, no instability Results Reviewed Results Reviewed: X-rays of the patient's right knee show mild diffuse joint space narrowing, no acute bony abnormalities Assessment & Plan Assessment & Plan (1) Arthritis of right knee: Code(s): M17.11 - Unilateral primary osteoarthritis, right knee Category: Medical Plan Ms. Bardales presents with right knee pain due to early degenerative joint disease. I had a lengthy discussion with the patient regarding the treatment options. Activity modifications were discussed at length with the patient. We will hold off on an injection for now. I did give her a prescription for meloxicam. She will follow up with me on an as-needed basis should her symptoms not plateau at an unacceptable level over the next few months. Feel free to call me at any time should questions regarding her orthopedic management arise. I spent 21 minutes in reviewing the patient's records and imaging studies, seeing the patient and documenting in the medical record. Medications: New meloxicam 15 mg PO DAILY PRN 30 tabs 2RF pain Coding Level of Care Code Est Pt Level 3 (31549) Diagnoses Arthritis of right knee M17.11
== END 2023-11-20 11:27 | disposition home or self-care (01) ==
PROVIDERS: PCP Internal Medicine; Visit Provider Orthopaedic Surgery
DX: M17.11 Unilateral primary osteoarthritis, right knee (principal)
CPT/HCPCS: 99214

== ENCOUNTER → 2023-11-20 10:51 | Outpatient (BNVA) | payer MEDICARE, SELFPAY | PROVIDERS: PCP Internal Medicine; Visit Provider Orthopaedic Surgery | DX: M17.11 Unilateral primary osteoarthritis, right knee (principal) | CPT/HCPCS: 99212 ==

== ENCOUNTER 2023-11-27 08:28 | Outpatient (AMB) | payer MEDICARE, SELFPAY ==
--- NOTE | 2023-11-27 09:25 | A.OFFPC_ITS ---
Vital Signs 11/27/23 09:27 Height 5 ft 4 in Weight 149 lb BMI 25.6 BP 104/66 Blood Pressure Location Lt brachial Position Sitting Pulse 84 Pulse Source Pulse Oximeter Pulse Oximetry (%) 96 Oxygen Delivery Method Room Air Intake Visit Reasons: AWV Intake Note: pt here for annual wellness visit. Bone density 06/29/22. Mammogram due. ? last done Allergies codeine [CODEINE] Adverse Reaction (Unknown, Verified 11/27/23 09:55) NAUSEA & VOMITING Tobacco use date assessed: 11/27/23 Fall risk assessment: No Falls in past year Last assessed Fall Risk: 11/27/23 Dental Screening Dental Screen Date: 11/27/23 Did you have a dental visit in the last 12 months?: Yes Did you have a dental problem in the last 6 months where you did not have access to dental care?: No Was dental information given to patient?: Patient has dentist [facility] Medical History Elevated C-reactive protein (CRP) Polyarthralgia Hypercalcemia Osteoporosis Surgical History History of right hip replacement Hx of tonsillectomy Hx of section Family History Father Prostate cancer Bone cancer Mother Cancer Brother Mental health disorder Sister Ovarian cancer Family/Other Multiple sclerosis Social History Household Members: Spouse Household Members Other:: Housing: House Alcohol intake: current Alcohol type: wine Patient Tobacco Use Status: Former Tobacco user e-Cigarette/Vaping Use: Never Used service: No Current occupational status: employed and retired 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 eTrrence Lomax, Nori Hay, Ceasar Roldan and colleagues, with an educational davin from [employer]. Physical exam (Primary Care) Vital Signs: Last Vital Signs Pulse 84 06/04/24 09:27 BP 104/66 11/27/23 09:27 Pulse Ox 96 11/27/23 09:27 Oxygen Delivery Method Room Air 11/27/23 09:27 BMI result Body Mass Index 25.6 Tobacco/Smoking Status: Tobacco use Status Tobacco use date assessed 11/27/23 11/27/23 09:28 Patient Tobacco Use Status Former Tobacco user 11/27/23 09:28 e-Cigarette/Vaping Use Never Used 11/27/23 09:28 Thrive Assessment: Date of Thrive Assessment Date Thrive assessed 08/29/23 11/27/23 09:28 Coding
[2023-11-27 09:27] VITALS: BP 104/66; PULSE 84; O2SAT 96; BMI 25.6
--- NOTE | 2023-11-27 10:09 | A.OFFVIS_ITS ---
Intake Vital Signs 11/27/23 09:27 11/27/23 10:12 Height 5 ft 4 in Weight 149 lb BMI 25.6 25.6 BP 104/66 Blood Pressure Location Lt brachial Position Sitting Pulse 84 Pulse Source Pulse Oximeter Pulse Oximetry (%) 96 Oxygen Delivery Method Room Air Intake Visit Reasons: AWV Allergies codeine [CODEINE] Adverse Reaction (Unknown, Verified 11/27/23 10:34) NAUSEA & VOMITING Medication List - Last Reconciled 11/27/23 by Pauly Fiore MD multivitamin 1 tab PO DAILY naproxen sodium (Aleve) 220 mg PO BID PRN HPI AWV HPI Details AWV ? 68 year old lady presents for her ? Annual Wellness Visit, initial visit.? She is up-to-date with bone density scan done, last done 06/29/2022 which showed presence of osteoporosis,seen by Dr. Booth,, who ordered a secondary workup for his osteoporosis before deciding on appropriate treatment but patient missed follow-up appointment, will reschedule. She is overdue for her screening mammogram and overdue for her colonoscopy, is scheduled already to see Dr. Booth. Up-to-date with her lipid and diabetes screening. Has had COVID vaccines in the past but does not want to get the booster nor does she want to get a flu shot. Reminded to get her Shingrix vaccine for protection against herpes zoster. ? Medical / Social History Reviewed? Past Medical History ?Yes . ? [place] of Care / Care Team list updated ?Yes . ? Surgical/Hospitalization History ?Yes . ? Current Medications (including OTC and supplements) ?Yes . ? Family History ?Yes . ? Tobacco Control form ?Yes . ? AUDIT-C (Alcohol use) form ?Yes . ? Illicit drug use in Social History ?Yes . ? Current diagnosis of depression? ?No ? Appropriate PHQ2/PHQ9 completed ?Yes . ? Data entered by ?Senior Buyer Planner and reviewed by provider ? Fall Risk ? Fall History? Have you had any falls with injury in the past year? ?No . ? Have you had two or more falls in the past year? ?No . ? Fall Risk Assessment: ?No falls in the past year . ? HRA filled out by the patient, reviewed by Provider and scanned. ?AWV ? Balance? Romberg ?negative. ? Tandem walk ?Yes . ? Walk and Turn ?Yes . ? Rise from sit to stand ?Yes . ?Vision? Corrective lens ?Yes ? Vision screen ? Up-to-date, goes to [facility] for her routine eye exam ?Hearing? Whisper test ?pass . ?Written Plan?Completed. See Patient Documents.? HPI Comments History of Present Illness Details On review of recent labs done at the ER 08/14/2023, and hypercalcemia was noted. He also is here still complaining of pain in his right knee. Was seen at the walk-in clinic diagnosed with a sprain and was referred to orthopedics, seen by Dr. Andrew callaway who prescribed meloxicam which patient states has not helped alleviate her pain. No history of trauma or strenuous exertion. An x-ray of her right knee joint done last month at the walk-in clinic showed presence ofTricompartmental degenerative changes with chondrocalcinosis... It was also noted that her random blood sugar was elevated at 1 30 mg/dL. No personal or family history of diabetes. mellitus PFSH Medical History History of shingles Elevated C-reactive protein (CRP) Polyarthralgia Hypercalcemia Osteoporosis Surgical History History of right hip replacement Hx of tonsillectomy Hx of section Family History Father Prostate cancer Bone cancer Mother Cancer Brother Mental health disorder Sister Ovarian cancer Family/Other Multiple sclerosis Social History Household Members: Spouse Household Members Other:: Housing: House Alcohol intake: current Alcohol type: wine Patient Tobacco Use Status: Former Tobacco user e-Cigarette/Vaping Use: Never Used service: No Current occupational status: employed 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 Cognitive needs: No Hearing needs: No Vision needs: Yes Questionnaire Medicare Wellness Checkup [age] What gender do you identify with?: female During the past 4 weeks, how much have you been bothered by emotional problems such as feeling anxious, depressed, irritable, sad or downhearted, and blue?: not at all During the past 4 weeks, has your physical & emotional health limited your social activities with family, friends, neighbors, or groups?: slightly During the past 4 weeks, how much bodily pain have you generally had?: moderate pain During the past 4 weeks, was someone available to help you if you needed & wanted help?: no, not at all During the past 4 weeks, what was the hardest physical activity you could do for at least 2 minutes?: moderate Can you get to places out of walking distance without help? (For eg., can you travel alone on buses, taxis or drive your car?): Yes Can you go shopping for groceries or clothes without someone's help?: Yes Can you prepare your own meals?: Yes Can you do your housework without help?: Yes Because of any health problems, do you need the help of another person with your personal care needs such as eating, bathing, dressing or getting around the house?: No Can you handle your own money without help?: Yes During the past 4 weeks, how would you rate your health in general?: good During the past 4 weeks how have things been going for you?: pretty well Are you having difficulties driving your car?: no Do you always fasten your seat belt when you are in a car?: yes, usually During past 4 weeks, have you been bothered by the following: never: Falling or dizzy when standing up, Sexual problems?, Trouble eating well?, Teeth or denture problems?, Problems using the telephone? and Tiredness or fatigue? Have you fallen 2 or more times in the past year?: No Are you afraid of falling?: No Are you a smoker?: no During the past 4 weeks, how many drinks of wine, beer, or other alcoholic beverages did you have?: 1 drink or less per week Do you exercise for about 20 minutes 3 or more times a week?: yes, most of the time Have you been given information to help with the following?: no: Hazards in your house that might hurt you? and no: Keeping track of your medications? How often do you have trouble taking medicines the way you have been told to take them?: I do not have to take medicine How confident are you that you can control & manage most of your health problems?: very confident What is your race?: White Mini Mental State Exam (MMSE) Orientation What is the (year) (season) (date) (day) (month)?: year (2023), season (Spring), date (11/27/2023), day (Sunday) and month (November) Where are we (state) (county) (town or city) (hospital) (floor)?: state ([place]), formerly [facility] ([place]), town or city ([place]) and hospital/clinic ([facility]) Score Score: 9 Activity of Daily Living Bathing - sponge bath, tub bath or shower: receives no assistance (gets in/out by self, if usual bathing means Dressing - getting clothes from closets & drawers, including inner/outer garments & fasteners.: gets clothes & gets completely dressed without help Toileting - going to the 'toilet room' for urine/bowel elimination & cleaning self/arranging clothes: goes to toilet room, cleans self, arranges clothes without help Transfer: moves in & out of bed and chair without help (may use support object) Continence: controls urination/bowel movements completely by self Feeding: feeds self without help Total Score: 0 Information obtained from: patient Using telephone: independent Traveling: independent Shopping: independent Preparing meals: independent Housework: independent Taking medicine: independent Managing money: independent PHQ-9 Over the last 2 weeks, how often have you been bothered by any of the following problems? 1. Little interest or pleasure in doing things: not at all 2. Feeling down, depressed, or hopeless: not at all 3. Trouble falling or staying asleep, or sleeping too much: not at all 4. Feeling tired or having little energy: not at all 5. Poor appetite or overeating: not at all 6. Feeling bad about yourself - or that you are a failure or have let yourself or your family down: not at all 7. Trouble concentrating on things, such as reading the newspaper or watching television: not at all 8. Moving or speaking so slowly that other people could have noticed. Or the opposite - being so fidgety or restless that you have been moving around a lot more than usual: not at all 9. Thoughts that you would be better off or of hurting yourself in some way: not at all Total score: 0 Depression Screening Interpretation: Negative Depression Screening Done: Yes 66284 - PHQ-9 Billing: Yes Source: Developed by Drs. Terrence Lomax, Nori Hay, Ceasar Roldan and colleagues, with an educational davin from [employer]. Review of Systems Const Reports as per HPI Musc Reports as per HPI Neuro Reports no additional complaints Endo Denies polyphagia, Denies polydipsia and Denies polyuria Physical Exam Vital Signs: Last Vital Signs Pulse 84 11/27/23 09:27 BP 104/66 11/27/23 09:27 Pulse Ox 96 11/27/23 09:27 Oxygen Delivery Method Room Air 11/27/23 09:27 BMI result Body Mass Index 25.6 Const Other: Alert oriented x3, no acute distress noted ambulatory normal gait Orientation/consciousness: patient oriented x3 HEENT Other: Alert oriented x3, no acute distress noted, has normal gait. Neuro General: patient oriented x3, gait normal, moves all extremities, Normal light touch and pain sensation, no focal motor deficits and CN's II-XI intact bilaterally Gait exam (Neuro): Normal gait present Extrem Other: Mild crepitus on right knee with range of motion, no instability, no effusion seen Assessment & Plan Assessment & Plan (1) Encounter for annual wellness visit (AWV) in Medicare patient: Code(s): Z00.00 - Encounter for general adult medical examination without abnormal findings Plan: Medical wellness checklist reviewed, updated in discussed with patient reminded to get her Shingrix vaccine but does not want to get future COVID vaccines flu shots. Patient advised to schedule screening mammogram,. Already has an appointment to see Dr. Hutchinson for her colon cancer screen (2) Encounter for screening for malignant neoplasm of colon: Code(s): Z12.11 - Encounter for screening for malignant neoplasm of colon Plan: Referral to GI Clinic for her initial screening colonoscopy (3) Left knee pain: Code(s): M25.562 - Pain in left knee Qualifiers: Chronicity: acute Qualified Code(s): M25.562 - Pain in left knee Plan: Seen and evaluated by Orthopedics, and prescribed meloxicam , patient however reports no improvement in her pain. Will refer for physical therapy (4) Hypercalcemia: Code(s): E83.52 - Hypercalcemia Plan: Ordered serum ionized calcium, (5) Elevated blood sugar: Code(s): R73.9 - Hyperglycemia, unspecified Plan: Fasting glucose and hemoglobin A1c ordered (6) Advanced directives, counseling/discussion: Code(s): Z71.89 - Other specified counseling Plan: Initiated the conversation about Advanced Directives. Advanced Directives help patients prepare for current and future decisions about their medical treatment and place of care. Discussed with patient that it is a process where a patients current condition and prognosis are reviewed, their wishes for information regarding their illness are elicited, and likely medical dilemmas are presented and options discussed. MOLST form and healthcare proxy form completed today. These forms can be amended as needed, reviewed yearly and make changes as needed Orders: Orders PT Evaluation and Treatment 11/27/23 M25.562 - Pain in left knee Vitamin B12 and Folate 11/27/23 E83.52 - Hypercalcemia, R74.8 - Abnormal levels of other serum enzymes Glucose Fasting 11/27/23 R73.9 - Hyperglycemia, unspecified Calcium, Ionized 11/27/23 E83.52 - Hypercalcemia, R74.8 - Abnormal levels of other serum enzymes Hemoglobin A1c 11/27/23 R73.9 - Hyperglycemia, unspecified Referrals Gastroenterology Referral Z12.11 - Encounter for screening for malignant neoplasm of colon Quality Reporting (2019) Depression/Bipolar (159/160/161/177) PHQ-9: Total score: 0 Coding Level of Care Code Medicare First (G0438) Est Pt Level 4 (67272) Diagnoses Encounter for annual wellness visit (AWV) in Medicare patient Z00.00 Encounter for screening for malignant neoplasm of colon Z12.11 Acute pain of left knee M25.562 Chronicity: acute Hypercalcemia E83.52 Elevated blood sugar R73.9 Advanced directives, counseling/discussion Z71.89 CPT Codes Advance Care Planning - Time spent: 16-45 minutes ([id number]) Advance Care Planning Advance Care Planning discussion: Completed/Scanned Date of discussion: 11/27/23 Who was present: Patient Forms completed: Health Care Proxy and MOLST Time spent: 16-45 minutes Actual minutes spent: 16
[2023-11-27 10:12] VITALS: BMI 25.6
== END 2023-11-27 10:49 | disposition home or self-care (01) ==
PROVIDERS: PCP Internal Medicine; Visit Provider Internal Medicine
DX: Z00.00 Encounter for general adult medical examination without abnormal findings (principal); M25.562 Pain in left knee; E83.52 Hypercalcemia; R73.9 Hyperglycemia, unspecified; Z12.11 Encounter for screening for malignant neoplasm of colon
CPT/HCPCS: 99214; 99497; G0438

== ENCOUNTER 2023-12-11 08:27 | Outpatient (REF) | payer MEDICARE, SELFPAY | END 2023-12-11 08:28 | disposition home or self-care (01) | LOC: HO.MAMMO 08:27 | PROVIDERS: PCP Internal Medicine; Visit Provider Internal Medicine | DX: Z12.31 Encounter for screening mammogram for malignant neoplasm of breast (principal) | CPT/HCPCS: 77063; 77067 ==

== ENCOUNTER → 2023-12-11 08:45 | Outpatient (BNV) | payer MEDICARE, SELFPAY | PROVIDERS: PCP Internal Medicine; Visit Provider Radiology Diagnostic Radiology | DX: Z12.31 Encounter for screening mammogram for malignant neoplasm of breast (principal) | CPT/HCPCS: 77063; 77067 ==

== ENCOUNTER 2023-12-17 06:08 | Outpatient (REF) | payer MEDICARE, SELFPAY ==
[2023-12-17 12:26] LABS: Estimated Average Glucose 97 mg/dL
[2023-12-17 12:46] LABS: Glucose Fasting 94 mg/dL (60-99)
[2023-12-17 13:10] LABS: Folate 6.7 ng/mL (> or = 4.0); Vitamin B12 571 pg/mL (200-900)
[2023-12-19 11:59] LABS: Calcium, Ionized 5.2 mg/dL (4.7-5.5)
== END 2023-12-17 06:09 | disposition home or self-care (01) ==
LOC: HO.HMGCLDS 06:08
PROVIDERS: PCP Internal Medicine; Visit Provider Internal Medicine
DX: E83.52 Hypercalcemia (principal); R74.8 Abnormal levels of other serum enzymes; R73.9 Hyperglycemia, unspecified
CPT/HCPCS: 36415; 82330; 82607; 82746; 82947; 83036

== ENCOUNTER 2024-01-17 10:00 | Outpatient (RCR) | payer MEDICARE, SELFPAY ==
--- NOTE | 2023-12-13 10:41 | MHC.PT.EP ---
[facility] [place] Office [place] Office [place] Office [address] Svetlana Burns [address] [phone] F: [phone] F: [phone] F: [phone] F: [phone] Physical Therapy Plan of Care Date of Evaluation: 12/13/23 Date of Surgery: n/a Diagnosis: pain in L knee Assessment: Patient is a 68 year old female presenting to PT with complaints of pain in her L knee. Pt reports onset of pain began about 1 month ago due to insidious onset. She presents today with impairments in pain, ROM, knee strength, hip strength. Pt's current occupation is retired, with baseline physical activities including ambulating, stair negotiation, ADLs. Pt expresses jail goal of reducing pain, and is motivated to work towards this in PT. Clinical presentation today is most consistent with signs and sx associated with L knee pain and pt will benefit from skilled PT 2 week x 4 weeks to address the following problems and impairments noted upon evaluation: pain, ROM, knee strength, hip strength. These problems limit the patient with the following functional activities: ambulating, stair negotiation, ADLs. The prescribed treatment plan of care is medically necessary. Co-morbidities of osteoporosis were identified and taken into considerations of plan of care. Pt was educated on HEP, role of PT, prognosis, POC. Frequency and Duration: The patient will be seen 2 x week x 4 weeks Short Term Goals: Pt will demonstrate symmetrical knee flexion of 130 in 2 weeks. Pt will demonstrate 5/5 knee MMT strength in 2 weeks. Pt will demonstrate improved hip MMT strength by 1/3 grade in 2 weeks for improved lumbopelvic stability. [employer] Custodian Goals: Pt will demonstrate improved LEFI score by 9 points in 4 weeks for improved functional mobility. Pt will demonstrate ability to ambulate with normal mechanics and min to no pain in 4 weeks for return to PLOF. Pt will demonstrate ability to negotiate stairs with min to no pain in 4 weeks for improved access to her home. Treatment Plan: Modalities to reduce pain, spasms and effusion. Manual therapy to restore motion and function. Therapeutic exercise to improve strength and flexibility. Neuromuscular re-education for posture and balance. Therapeutic activities to return to functional activities of daily living. Electronically signed by: Stephy Merida, PT, DPT, ATC Please sign and return to therapist. Thank you for your referral.
--- NOTE | 2024-01-17 10:50 | MHC.PT.DC ---
[facility] [place] Office [place] Office [place] Office [address] [phone] F: [phone] F: [phone] F: [phone] F: [phone] Physical Therapy Discharge Report Diagnosis: pain in L knee Date of Surgery: n/a Date of Evaluation: 12/13/23 Date of Discharge: 01/17/24 Treatments to Date: 9 Cancellations to Date: 0 No Shows to Date: 0 Discharge Status: Independent with HEP Discharge Summary: 01/17/2024: Pt has made some progress since start of care in terms of strength and ROM however she continues to be limited with her knee. Her gait is still antalgic and she continues to experience symptoms of locking and getting stuck. In order for her knee to be able to move it has to pop. At this point max benefits of PT have been provided and skilled PT is no longer indicated. I have concerns for meniscus tear based on the locking she is experiencing. Encouraged her to follow up with her MD for further evaluation and hopefully imaging. Electronically signed by: Stephy Merida, PT, DPT, ATC Please sign and return to therapist. Thank you for your referral.
== END 2024-01-17 10:51 | disposition home or self-care (01) ==
LOC: HO.PTCHIC 10:00
PROVIDERS: PCP Internal Medicine; Visit Provider Internal Medicine
DX: M25.562 Pain in left knee (principal)
CPT/HCPCS: 97110; 97140; 97161

== ENCOUNTER 2024-02-21 09:31 | Outpatient (REF) | payer MEDICARE, SELFPAY ==
--- NOTE | ~2024-02-21 | XR_ITS ---
EXAMINATION: XR KNEE, LEFT CLINICAL INFORMATION: Left knee pain COMPARISON: None available. TECHNIQUE: Three views of the left knee. FINDINGS: Medial compartment narrowing. Small marginal osteophytes in all 3 compartments. Meniscal chondrocalcinosis. No fracture. No joint effusion. Enthesophyte at the tibial tubercle. XR/XR knee LT 3V IMPRESSION: Mild tricompartmental osteoarthritis with meniscal chondrocalcinosis. No acute osseous abnormality. Electronically signed by: Edgardo Lopez MD 02/27/2024 10:24 AM EDT
== END 2024-02-21 09:32 | disposition home or self-care (01) ==
LOC: HO.HOSX 09:31
PROVIDERS: PCP Internal Medicine; Visit Provider Orthopaedic Surgery
DX: M25.562 Pain in left knee (principal); S83.242A Other tear of medial meniscus, current injury, left knee, initial encounter; X58.XXXA Exposure to other specified factors, initial encounter; Y93.9 Activity, unspecified; Y92.9 Unspecified place or not applicable; Y99.9 Unspecified external cause status
CPT/HCPCS: 73562; 99212

== ENCOUNTER 2024-02-21 10:12 | Outpatient (AMB) | payer MEDICARE, SELFPAY ==
[2024-02-21 10:15] VITALS: BMI 25.6
--- NOTE | 2024-02-21 10:15 | A.OFFVIS_ITS ---
Vital Signs 02/21/24 10:15 Height 5 ft 4 in Weight 149 lb BMI 25.6 Intake Visit Reasons: New Prob - LT knee pain Intake Note: Felicia is a 68 year old female who presents with complaints of progressively worsening left knee pain and giving way. The patient states that her symptoms have gotten worse over the last year in spite of continued non operative treatments. She has recently completed formal physical therapy which seemed to aggravate her pain. She has taken Tylenol and Aleve which gave her minimal relief. Most of the pain is along the medial aspect of her knee. She states that her left knee will give out several times per day. She has failed the last 6 weeks of conservative treatment. Allergies codeine [CODEINE] Adverse Reaction (Unknown, Verified 02/21/24 10:16) NAUSEA & VOMITING Medication List - Last Reconciled 02/21/24 by Malachi Toribio MD multivitamin 1 tab PO DAILY naproxen sodium (Aleve) 220 mg PO BID PRN PFSH Medical History History of shingles Elevated C-reactive protein (CRP) Polyarthralgia Hypercalcemia Osteoporosis Surgical History History of right hip replacement Hx of tonsillectomy Hx of section Family History Father Prostate cancer Bone cancer Mother Cancer Brother Mental health disorder Sister Ovarian cancer Family/Other Multiple sclerosis Social History Household Members: Spouse Household Members Other:: Housing: House Alcohol intake: current Alcohol type: wine Patient Tobacco Use Status: Former Tobacco user e-Cigarette/Vaping Use: Never Used service: No Current occupational status: employed 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 Cognitive needs: No Hearing needs: No Vision needs: Yes Physical Exam Vital Signs: BMI result Body Mass Index 25.6 Const Other: Well-nourished well-developed very friendly female awake alert and oriented x3 in no acute distress Extrem Other: Bilateral lower extremity examination shows good capillary refill, no skin lesions noted, normal sensation light touch Left knee examination shows a minimal effusion, minimal crepitus with range of motion, tenderness along her medial joint line, positive Jaxson's test, no instability Results Reviewed Results Reviewed: Standing full weight-bearing x-rays of the patient's left knee show mild diffuse joint space narrowing, no acute bony abnormalities Assessment & Plan Assessment & Plan (1) Left knee pain: Code(s): M25.562 - Pain in left knee Category: Medical Plan Ms. Bardales presents with progressively worsening left knee pain and mechanical symptoms most likely due to a tear of her medial meniscus. Thus, I will send the patient for an MRI of her left knee for further evaluation. I will see her back once the MRI is completed to discuss the findings and treatment options. Feel free to call me at any time should questions regarding her orthopedic management arise. I spent 21 minutes in reviewing the patient's records and imaging studies, seeing the patient and documenting in the medical record. Orders: Orders XR knee LT 3V Today M25.562 - Pain in left knee MR knee LT wo con Today S83.242A - Other tear of medial meniscus, current in [facility], left knee, initial encounter Coding Level of Care Code Est Pt Level 3 (74410) Complex EM visit Add On G2211 Diagnoses Left knee pain M25.562
== END 2024-02-21 10:27 | disposition home or self-care (01) ==
PROVIDERS: PCP Internal Medicine; Visit Provider Orthopaedic Surgery
DX: M25.562 Pain in left knee (principal)
CPT/HCPCS: 99213; G2211

== ENCOUNTER 2024-03-19 13:28 | Outpatient (AMB) | payer MEDICARE, SELFPAY ==
[2024-03-19 14:45] VITALS: BP 130/90; PULSE 74; O2SAT 97; BMI 26.3
--- NOTE | 2024-03-19 14:45 | MHC.PC.OV ---
Vital Signs 03/19/24 14:45 Height 5 ft 4 in Weight 153 lb BMI 26.3 BP 130/90 H Blood Pressure Location Lt brachial Position Sitting Pulse 74 Pulse Source Pulse Oximeter Pulse Oximetry (%) 97 Oxygen Delivery Method Room Air Intake Visit Reasons: f/u after Physical Therapy Intake Note: Pt is here today for her f/u after physical therapy Allergies codeine [CODEINE] Adverse Reaction (Unknown, Verified 03/24/24 04:44) NAUSEA & VOMITING Medication List - Last Reconciled 03/24/24 by Pauly Fiore MD multivitamin 1 tab PO DAILY naproxen sodium (Aleve) 220 mg PO BID PRN Tobacco use date assessed: 03/19/24 Fall risk assessment: No Falls in past year Last assessed Fall Risk: 03/19/24 Dental Screening Dental Screen Date: 03/19/24 Did you have a dental visit in the last 12 months?: Yes Did you have a dental problem in the last 6 months where you did not have access to dental care?: No Was dental information given to patient?: Patient has dentist HPI f/u after Physical Therapy HPI Details 68-year-old lady with history of osteoporosis, here today for follow-up after receiving physical therapy for left knee pain. Patient states that it has helped and pain is now better. Continues to do exercises taught at physical therapy. [facility]LY [facility], [facility] Medical History History of shingles Elevated C-reactive protein (CRP) Polyarthralgia Hypercalcemia Osteoporosis Surgical History History of right hip replacement Hx of tonsillectomy Hx of section Family History Father Prostate cancer Bone cancer Mother Cancer Brother Mental health disorder Sister Ovarian cancer Family/Other Multiple sclerosis Son Substance use disorder Social History Household Members: Spouse Household Members Other:: Housing: House Alcohol intake: current Alcohol type: wine Patient Tobacco Use Status: Former Tobacco user e-Cigarette/Vaping Use: Never Used service: No Current occupational status: employed 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 1. Little interest or pleasure in doing things: not at all 2. Feeling down, depressed, or hopeless: not at all 3. Trouble falling or staying asleep, or sleeping too much: not at all 4. Feeling tired or having little energy: not at all 5. Poor appetite or overeating: not at all 6. Feeling bad about yourself - or that you are a failure or have let yourself or your family down: not at all 7. Trouble concentrating on things, such as reading the newspaper or watching television: not at all 8. Moving or speaking so slowly that other people could have noticed. Or the opposite - being so fidgety or restless that you have been moving around a lot more than usual: not at all 9. Thoughts that you would be better off or of hurting yourself in some way: not at all Total score: 0 Depression Screening Interpretation: Negative Depression Screening Done: Yes 04663 - PHQ-9 Billing: Yes Source: Developed by Drs. Terrence Lomax, Nroi Hay, Ceasar Roldan and colleagues, with an educational davin from [employer]. Thrive Questionnaire Date Thrive assessed: 03/19/24 I am a: Patient What is your living situation today?: I have a steady place to live Within the past 12 months, did the food you bought not last and you didn't have the money to get more?: Often true Within the past 12 months, did you worry whether your food would run out before you got money to buy more?: Never true Do you have trouble paying for medicines?: No Do you have trouble getting transportation to medical appointments?: No Do you have trouble paying your heating and electricity bill?: No Do you have trouble taking care of your child, family member or friend?: No Do you have trouble with day-to-day activities such as bathing, preparing meals, shopping, managing finances, etc.?: No Are you interested in more education?: No Please select the resources that you would like help with: None Currently or been in a relationship where the following occur: No concerns reported THRIVE Score: 1 AUDIT C Alcohol Use Questionnaire (AUDIT-C) 1. How often do you have a drink containing alcohol?: Monthly or less 2. How many drinks containing alcohol do you have on a typical day when you are drinking?: 1 or 2 3. How often do you have six or more drinks on one occasion?: Never Total Score: 1 SATNAM-7 AMB Questionnaire SATNAM-7 Date SATNAM - 7 assessed: 08/29/23 Feeling nervous, anxious, or on edge: 0 = Not at all Not being able to stop or control worryin = Not at all Worrying too much about different things: 0 = Not at all Trouble relaxin = Not at all Being so restless that it is hard to sit still: 0 = Not at all Becoming easily annoyed or irritable: 0 = Not at all Feeling afraid as if something awful might happen: 0 = Not at all Total SATNAM-7 score (0-4 normal; 5-9 mild; 10-14 moderate; 15-21 severe): 0 Source: Developed by Drs. Terrence Lomax, Nori Hay, Ceasar Roldan and colleagues, with an educational davin from [employer]. SATNAM-7 Assessment Billing SATNAM-7 Assessment Tool: SATNAM-7 Assessment 65226 Review of Systems Const All systems reviewed & are unremarkable except as noted in HPI and below Musc Reports as per HPI Neuro Reports no additional complaints Endo Denies polyphagia, Denies polydipsia and Denies polyuria Physical exam (Primary Care) Vital Signs: Last Vital Signs Pulse 74 03/19/24 14:45 BP 130/90 H 03/19/24 14:45 Pulse Ox 97 03/19/24 14:45 Oxygen Delivery Method Room Air 03/19/24 14:45 BMI result Body Mass Index 26.3 Tobacco/Smoking Status: Tobacco use Status Tobacco use date assessed 03/19/24 03/19/24 14:49 Patient Tobacco Use Status Former Tobacco user 03/19/24 14:49 e-Cigarette/Vaping Use Never Used 03/19/24 14:49 PHQ-9: PHQ-9 Score PHQ-9: Total score 0 03/19/24 15:18 Depression Screening Interpretation: Negative Thrive Assessment: Date of Thrive Assessment Date Thrive assessed 03/19/24 03/19/24 14:49 Currently or been in a relationship where the following occur: No concerns reported Const Other: Alert oriented x3, ambulatory normal gait Orientation/consciousness: patient oriented x3 Neck Neck: Yes full ROM, Yes no lymphadenopathy and Yes supple Resp Auscultation: clear to auscultation bilaterally Cardio Other: S1-S2 present regular rate and rhythm Back/Spine/Pelvis Thoracic/Lumbar Spine: thoraco-lumbar ROM normal, straight leg raise negative bilaterally and No paraspinal muscle tenderness Skin General skin exam: no rashes or lesions noted Neuro General: patient oriented x3, gait normal, moves all extremities and no focal motor deficits Assessment and Plan Assessment & Plan (1) Osteoporosis: Code(s): M81.0 - Age-related osteoporosis without current pathological fracture Qualifiers: Osteoporosis type: age-related Presence of current pathological fracture: without current pathological fracture Qualified Code(s): M81.0 - Age-related osteoporosis without current pathological fracture Plan: She would a bone density scan ordered by her OBGYN Dr. Chaparro last year which showed presence of osteoporosis in her left femoral neck with a T-score of -2.6, osteopenia noted in lumbar spine and left femur. No History of fractures. Patient would like to have a referral to a specialist to discuss further treatment options for her osteoporosis, whether to start treatment or do conservative measures 1st with doing regular weight-bearing exercise, and taking calcium and vitamin-D supplements.. Referral to endocrine clinic ordered Orders: Referrals Endocrinology Referral M81.0 - Age-related osteoporosis without current pathological fracture Coding Level of Care Code Est Pt Level 3 (08457) Diagnoses Age-related osteoporosis without current pathological fracture M81.0 Osteoporosis type: age-related Presence of current pathological fracture: without current pathological fracture Additional Codes SATNAM-7 Assessment Billing - SATNAM-7 Assessment Tool: SATNAM-7 Assessment 32044 ([id number])
== END 2024-03-19 15:36 | disposition home or self-care (01) ==
PROVIDERS: PCP Internal Medicine; Visit Provider Internal Medicine
DX: M81.0 Age-related osteoporosis without current pathological fracture (principal)

== ENCOUNTER → 2024-03-19 13:28 | Outpatient (BNVA) | payer MEDICARE, SELFPAY | PROVIDERS: PCP Internal Medicine; Visit Provider Internal Medicine | DX: M81.0 Age-related osteoporosis without current pathological fracture (principal) | CPT/HCPCS: 96127; 99212 ==

== ENCOUNTER 2024-03-29 09:34 | Outpatient (REF) | payer MEDICARE, SELFPAY ==
--- NOTE | ~2024-03-29 | MR_ITS ---
EXAMINATION: MR KNEE WITHOUT CONTRAST, LEFT CLINICAL INFORMATION: Left knee pain and swelling. Crepitus. Decreased range of motion. Evaluate for medial meniscal tear. COMPARISON: Left knee radiographs dated 02/21/2024. TECHNIQUE: MRI of the knee without contrast was performed using routine sequences on a high-field scanner. FINDINGS: MENISCI: Medial Meniscus: Complex tearing of the meniscal body with a dominant oblique inner margin/tibial articular surface component. Tearing extends through the posterior horn along the tibial articular surface as well as along the inner margin of the posterior root. Medial extrusion of the meniscal body. Adjacent soft tissue edema. Lateral Meniscus: Inner margin fraying of the meniscal body. Fraying of the anterior root. LIGAMENTS: Cruciate: Thickening and increased T2 signal of the anterior cruciate ligament with cystic change in the medial tibial spine, consistent with early mucoid degeneration. Intact posterior cruciate ligament. Collateral: Intact EXTENSOR MECHANISM: Intact quadriceps and patellar tendons. Enthesopathic spurring at the tibial tuberosity. ARTICULAR CARTILAGE/BONE: Patellofemoral Compartment: Medial patellar facet articular cartilage signal heterogeneity. Medial trochlear signal heterogeneity with full-thickness fissuring and minimal subchondral cystic change. Tiny marginal osteophytes. Medial Compartment: Articular cartilage thinning and signal heterogeneity with areas of full-thickness loss extending from the weightbearing to the posterior non-weightbearing medial femoral condyle. Underlying subchondral cystic change and marrow edema. More prominent marrow edema along the anterior aspect of the medial tibial plateau which could indicate an underlying nondisplaced subchondral fracture. Mild adjacent periosteal and soft tissue edema. Lateral Compartment: Mild articular cartilage signal heterogeneity with tiny marginal osteophytes. Full-thickness loss at the posterior aspect of the lateral tibial plateau. JOINT FLUID AND BURSAE: Small joint effusion and small Lopez's cyst with mild synovitis. MR/MR knee LT wo con IMPRESSION: 1. Complex tearing of the medial meniscal body with a dominant oblique inner margin/tibial articular surface component. Tearing extends through the posterior horn along the tibial articular surface as well as along the inner margin of the posterior root. Medial extrusion of the meniscal body. 2. Inner margin fraying of the lateral meniscal body with fraying of the anterior root. 3. Early mucoid degeneration of the anterior cruciate ligament. 4. Moderate medial as well as mild patellofemoral and lateral compartment osteoarthritis. Small joint effusion and small Lopez's cyst with mild synovitis. 5. Prominent marrow edema along the anterior aspect of the medial tibial plateau which could indicate an underlying nondisplaced subchondral fracture. Electronically signed by: Lan Whitney MD 04/02/2024 09:52 AM EDT
== END 2024-03-29 09:35 | disposition home or self-care (01) ==
LOC: HO.MRI 09:34
PROVIDERS: PCP Internal Medicine; Visit Provider Orthopaedic Surgery
DX: S83.242A Other tear of medial meniscus, current injury, left knee, initial encounter (principal)
CPT/HCPCS: 73721

== ENCOUNTER 2024-04-02 08:55 | Outpatient (AMB) | payer MEDICARE, SELFPAY ==
--- NOTE | 2024-04-02 09:09 | A.OFFVIS_ITS ---
Intake Visit Reasons: OV- Left knee MRI review Intake Note: Felicia is a 68 year old female who presents with complaints of intermittent pain along the medial aspect of her left knee. She describes her pain as achy in nature. She does take Aleve as needed which gives her fairly good relief. She continues with her home exercise program. Allergies codeine [CODEINE] Adverse Reaction (Unknown, Verified 04/02/24 09:09) NAUSEA & VOMITING Medication List - Last Reconciled 04/03/24 by Malachi Toribio MD multivitamin 1 tab PO DAILY naproxen sodium (Aleve) 220 mg PO BID PRN PFSH Medical History History of shingles Elevated C-reactive protein (CRP) Polyarthralgia Hypercalcemia Osteoporosis Surgical History History of right hip replacement Hx of tonsillectomy Hx of section Family History Father Prostate cancer Bone cancer Mother Cancer Brother Mental health disorder Sister Ovarian cancer Family/Other Multiple sclerosis Son Substance use disorder Social History Household Members: Spouse Household Members Other:: Housing: House Alcohol intake: current Alcohol type: wine Patient Tobacco Use Status: Former Tobacco user e-Cigarette/Vaping Use: Never Used service: No Current occupational status: employed 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 Cognitive needs: No Hearing needs: No Vision needs: Yes Physical Exam Const Other: Well-nourished well-developed very friendly female awake alert and oriented x3 in no acute distress Extrem Other: Bilateral lower extremity examination shows good capillary refill, no skin lesions noted, normal sensation light touch Left knee examination shows a minimal effusion, minimal crepitus with range of motion, tenderness along her medial joint line, positive Jaxson's test, no instability Results Reviewed Results Reviewed: MRI of the patient's left knee shows mild degenerative changes as well as a tear of the medial meniscus Assessment & Plan Assessment & Plan (1) Left knee pain: Code(s): M25.562 - Pain in left knee Category: Medical Plan Ms. Bardales presents with intermittent discomfort in her left knee due to early degenerative joint disease as well as a tear of her medial meniscus. I had a lengthy discussion with the patient regarding the treatment options. At this point the patient's symptoms are tolerable to her. She will continue taking a leave as needed for discomfort. She will follow up with me on an as-needed basis should her symptoms worsen in any way. Feel free to call me at any time should questions regarding her orthopedic management arise. I spent 22 minutes in reviewing the patient's records and imaging studies, seeing the patient and documenting in the medical record. Coding Level of Care Code Est Pt Level 3 (78591) Complex EM visit Add On G2211 Diagnoses Left knee pain M25.562
== END 2024-04-02 09:41 | disposition home or self-care (01) ==
PROVIDERS: PCP Internal Medicine; Visit Provider Orthopaedic Surgery
DX: M17.12 Unilateral primary osteoarthritis, left knee (principal); S83.242A Other tear of medial meniscus, current injury, left knee, initial encounter
CPT/HCPCS: 99213; G2211

== ENCOUNTER → 2024-04-02 08:55 | Outpatient (BNVA) | payer MEDICARE, SELFPAY | PROVIDERS: PCP Internal Medicine; Visit Provider Orthopaedic Surgery | DX: S83.242A Other tear of medial meniscus, current injury, left knee, initial encounter (principal); X58.XXXA Exposure to other specified factors, initial encounter; Y93.9 Activity, unspecified; Y92.9 Unspecified place or not applicable; Y99.9 Unspecified external cause status | CPT/HCPCS: 99212 ==

== ENCOUNTER 2024-04-03 14:15 | Outpatient (AMB) | payer MEDICARE, SELFPAY ==
[2024-04-03 14:25] VITALS: BP 130/82; PULSE 76; BMI 26.5
--- NOTE | 2024-04-03 14:25 | MHC.OFFVIS ---
Vital Signs 04/03/24 14:25 Height 5 ft 4 in Weight 154 lb 8.705 oz BMI 26.5 BP 130/82 Blood Pressure Location Lt brachial Position Sitting Pulse 76 Pulse Source Pulse Oximeter Intake Visit Reasons: Age-related osteoporosis-conf Intake Note: Patient present today for Age-related osteoporosis. Neon Sign Maker Required: No Accompanied by: Self / Same As Patient Allergies codeine [CODEINE] Adverse Reaction (Unknown, Verified 04/03/24 14:31) NAUSEA & VOMITING HPI Comments Details: 68 YO Female with is seen in consultation at the request of PCP for Osteoporosis. First diagnosed in 10 yrs ago. Never saw endo . Not Received treatment in the past No history of pathologic fracture or ONJ. Has several servings of dietary calcium per day in the form of cheese, salmon . Takes Calcium supplement 1200 mg daily in divided doses. Takes ? IU of Vitamin D daily. Denies ever using PPI, anticoagulant, antiepileptic or glucocorticoid medication. 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 UTD on dental cleanings and sees dentist every 6 months. No planned upcoming dental work or extractions. DXA dated 06/29/22 :T-score L femoral neck = -2.6 Labs: Secondary workup was negative except recent labs showed increases in calcium. I do not see the 24 hour urine for calcium was performed [facility] Medical History History of shingles Elevated C-reactive protein (CRP) Polyarthralgia Hypercalcemia Osteoporosis Surgical History History of right hip replacement Hx of tonsillectomy Hx of section Family History Father Prostate cancer Bone cancer Mother Cancer Brother Mental health disorder Sister Ovarian cancer Family/Other Multiple sclerosis Son Substance use disorder Social History Household Members: Spouse Household Members Other:: Housing: House Alcohol intake: current Alcohol type: wine Patient Tobacco Use Status: Former Tobacco user e-Cigarette/Vaping Use: Never Used service: No Current occupational status: employed 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 Workup showed mild hypercalcemia. Differential diagnosis includes the presence of mild primary hyperparathyroidism versus spurious measurement of calcium Plan is to recheck calcium, albumin, PTH, 25 hydroxy vitamin-D as well as a24 hour urine for calcium and creatinine at [facility] ([facility]) . Will repeat DEXA bone density of hip, spine and distal forearm in 06/2024. If repeat labs are consistent with primary hyperparathyroidism and patient has significant osteoporosis on 3 site DEXA, she may be a candidate for parathyroid exploration. Orders: Orders Calcium Today M81.0 - Age-related osteoporosis without current pathological fracture XR DEXA appendicular skeleton 3 Months M81.0 - Age-related osteoporosis without current pathological fracture Creatinine, 24 Hr Group Today M81.0 - Age-related osteoporosis without current pathological fracture Calcium, 24 Hr Ur Today M81.0 - Age-related osteoporosis without current pathological fracture Albumin Level Today M81.0 - Age-related osteoporosis without current pathological fracture Vitamin D 25-OH Total Today M81.0 - Age-related osteoporosis without current pathological fracture Parathyroid Hormone Intact Today M81.0 - Age-related osteoporosis without current pathological fracture Coding Level of Care Code Est Pt Level 3 (92025) Diagnoses Age-related osteoporosis without current pathological fracture M81.0 Osteoporosis type: age-related Presence of current pathological fracture: without current pathological fracture
== END 2024-04-03 14:43 | disposition home or self-care (01) ==
PROVIDERS: PCP Internal Medicine; Visit Provider Internal Medicine Endocrinology, Diabetes & Metabolism
DX: M81.0 Age-related osteoporosis without current pathological fracture (principal)
CPT/HCPCS: 99213

== ENCOUNTER → 2024-04-03 14:15 | Outpatient (BNVA) | payer MEDICARE, SELFPAY | PROVIDERS: PCP Internal Medicine; Visit Provider Internal Medicine Endocrinology, Diabetes & Metabolism | DX: M81.0 Age-related osteoporosis without current pathological fracture (principal) | CPT/HCPCS: 99212 ==

== ENCOUNTER 2024-04-15 08:14 | Day surgery (SDC) | payer MEDICARE, SELFPAY ==
[2024-04-11 14:35] VITALS: BMI 26.3
--- NOTE | 2024-04-14 13:28 | HO.ANESPROP2 ---
Documented by User: Adelina Ramsay NP 04/14/24 13:28 HPI - Anesthesia Eval Consult details Narrative: 68yo F for Colonoscopy PMFSH Active Problems Active Problems: All Active Problems Left knee pain (Acute) Arthritis of right knee (Acute) Herpes zoster (Acute) Elevated C-reactive protein (CRP) (Acute) Polyarthralgia (Acute) Hypercalcemia (Acute) Osteoporosis (Acute) Past Medical History Medical History History of shingles Elevated C-reactive protein (CRP) Polyarthralgia Hypercalcemia Osteoporosis Family History Family History Father Prostate cancer Bone cancer Mother Cancer Brother Mental health disorder Sister Ovarian cancer Family/Other Multiple sclerosis Son Substance use disorder Surgical History Surgical History H/O oral surgery H/O wisdom tooth extraction H/O hand surgery H/O colonoscopy History of right hip replacement Hx of tonsillectomy Hx of section Social History Social History Household Members: Spouse Household Members Other:: Housing: House Alcohol intake: current Alcohol type: wine Patient Tobacco Use Status: Former Tobacco user e-Cigarette/Vaping Use: Never Used Use of substances other than those prescribed or required for medical reasons: No Are you DNR?: No Advance Directives: No Advance Directives Information Provided: Yes Advance Directives on File: No Recently lost weight without trying: No Nutrition Risks: No Nutritional Risk Patient : No service: No Current occupational status: employed 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 Cognitive needs: No Hearing needs: No Vision needs: Yes Meds Allergies Allergy/AdvReac Type Severity Reaction Status Date / Time codeine [CODEINE] AdvReac Unknown NAUSEA & Verified 04/03/24 14:31 VOMITING Home Medications ?Medication ?Instructions ?Recorded ?Confirmed ?Last Taken ?Type ibuprofen 200 mg tablet 400 mg PO Q6H PRN Pain 04/11/24 04/11/24 Unknown History Exam Height,Weight and Vital Signs: Height 5 ft 4 in Weight 69.4 kg Assessment and Plan Assessment Anesthesia Assessment: Chart Reviewed Documented by User: Malinda Mack MD 04/15/24 09:42 PMFSH Past Medical History Medical History History of shingles Elevated C-reactive protein (CRP) Polyarthralgia Hypercalcemia Osteoporosis Family History Family History Father Prostate cancer Bone cancer Mother Cancer Brother Mental health disorder Sister Ovarian cancer Family/Other Multiple sclerosis Son Substance use disorder Family history of problems with anesthesia: No Surgical History Surgical History H/O oral surgery H/O wisdom tooth extraction H/O hand surgery H/O colonoscopy History of right hip replacement Hx of tonsillectomy Hx of section History of Problems with Anesthesia: No Social History Social History Household Members: Spouse Household Members Other:: Housing: House Alcohol intake: current Alcohol type: wine Patient Tobacco Use Status: Former Tobacco user e-Cigarette/Vaping Use: Never Used Use of substances other than those prescribed or required for medical reasons: No Are you DNR?: No Advance Directives: No Advance Directives Information Provided: Yes Advance Directives on File: No Recently lost weight without trying: No Nutrition Risks: No Nutritional Risk Patient : No service: No Current occupational status: employed 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 Cognitive needs: No Hearing needs: No Vision needs: Yes Meds Allergies Allergy/AdvReac Type Severity Reaction Status Date / Time codeine [CODEINE] AdvReac Unknown NAUSEA & Verified 04/03/24 14:31 VOMITING Home Medications ?Medication ?Instructions ?Recorded ?Confirmed ?Last Taken ?Type ibuprofen 200 mg tablet 400 mg PO Q6H PRN Pain 04/11/24 04/11/24 Unknown History Exam Airway Mallampati Class: II TM Dist: >3cm Neck ROM: Full Heart: rrr Lungs: cta Assessment and Plan Assessment Anesthesia Assessment: Anesthesia Plan Discussed Final Anesthetic Review Family History of Problems with Anesthesia: No History of Problems with Anesthesia: No NPO: Yes ASA Class: II Final Preanesthetic Review: No Changes in Pt Med Stat, Meds/Allgs Chart Reviewed, Consent Obtained/Reviewed and Anes Risks/Benef Reviewed Patient Risk: Intermediate Procedure Risk: Low Anesthetic Plan Anesthetic Plan: MAC: Disposition: Standard PACU
[2024-04-15 08:42] VITALS: BMI 26.0
[2024-04-15 08:50] VITALS: BP 127/62; PULSE 70; RESP 16; TEMP 36.6; O2SAT 98
[2024-04-15] MEDS: Lactated Ringers 1,000 ML 100 ML IVCONT (09:10)
--- NOTE | 2024-04-15 09:45 | MHC.SHP ---
Pre-Procedural Eval Section A - 24 Hr Update-Section A only Date of Service: 04/15/24 The patient is an INPATIENT: No Changes since office visit: No Cold of Flu in the past 2 weeks, No New Medical Problems, No Changes in Medication and No Patient answered all questions The patient has been examined within 24 hours of the surgical procedure. The History & Physical has been completed within 30 days and I have reviewed it.: Yes Section B - Complete if H&P > 30 days Chief Complaint: screening Allergies: Allergies Allergy/AdvReac Type Severity Reaction Status Date / Time codeine [CODEINE] AdvReac Unknown NAUSEA & Verified 04/03/24 14:31 VOMITING Plan I have reviewed the history and physical and performed a pertinent physical examination on my patient. No changes have occurred unless specified. Time Spent With Patient Time: Total time managing care of this patient today ____ minutes.
--- NOTE | 2024-04-15 10:05 | P.CONAN_ITS ---
[facility] Active Problems Active Problems: All Active Problems Left knee pain (Acute) Arthritis of right knee (Acute) Herpes zoster (Acute) Elevated C-reactive protein (CRP) (Acute) Polyarthralgia (Acute) Hypercalcemia (Acute) Osteoporosis (Acute) Past Medical History Medical History History of shingles Elevated C-reactive protein (CRP) Polyarthralgia Hypercalcemia Osteoporosis Patient : No Family History Family History Father Prostate cancer Bone cancer Mother Cancer Brother Mental health disorder Sister Ovarian cancer Family/Other Multiple sclerosis Son Substance use disorder Family history of problems with anesthesia: No Surgical History Surgical History H/O oral surgery H/O wisdom tooth extraction H/O hand surgery H/O colonoscopy History of right hip replacement Hx of tonsillectomy Hx of section History of Problems with Anesthesia: No Social History Social History Household Members: Spouse Household Members Other:: Housing: House Alcohol intake: current Alcohol type: wine Patient Tobacco Use Status: Former Tobacco user e-Cigarette/Vaping Use: Never Used service: No Current occupational status: employed 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 Cognitive needs: No Hearing needs: No Vision needs: Yes Meds Allergies Allergy/AdvReac Type Severity Reaction Status Date / Time codeine [CODEINE] AdvReac Unknown NAUSEA & Verified 04/03/24 14:31 VOMITING Active Medications: Current Medications Lactated Ringer's (Lr) 1,000 mls @ 100 mls/hr IVCONT .Q10H LINSEY Last Admin: 04/15/24 09:10 Dose: 100 mls/hr Naloxone HCl (Naloxone Hcl 0.4 Mg/Ml Vial) 0.04 mg IVPUSH Q5M PRN PRN Reason: Excessive sedation or RR < 8 Home Medications ?Medication ?Instructions ?Recorded ?Confirmed ?Last Taken ?Type ibuprofen 200 mg tablet 400 mg PO Q6H PRN Pain 04/11/24 04/11/24 Unknown History Exam Height,Weight and Vital Signs: Height 5 ft 4 in Weight 68.606 kg Last Vital Signs Temp 97.8 F 04/15/24 08:50 Pulse 70 04/15/24 08:50 Resp 16 04/15/24 08:50 BP 127/62 04/15/24 08:50 Pulse Ox 98 04/15/24 08:50 O2 Del Method Room Air 04/15/24 08:50 Airway Mallampati Class: II TM Dist: >3cm Neck ROM: Full Heart: RRR Lungs: CTA Assessment and Plan Assessment Anesthesia Assessment: Anesthesia Plan Discussed and Chart Reviewed Final Anesthetic Review Family History of Problems with Anesthesia: No History of Problems with Anesthesia: No NPO: Yes ASA Class: II Final Preanesthetic Review: Meds/Allgs Chart Reviewed, Consent Obtained/Reviewed and Anes Risks/Benef Reviewed Patient Risk: Low Procedure Risk: Low Anesthetic Plan Anesthetic Plan: MAC: Disposition: Standard PACU
[2024-04-15 10:18] VITALS: BP 116/61; PULSE 73; RESP 16; TEMP 36.3; O2SAT 100
--- NOTE | 2024-04-15 10:31 | OP_ITS ---
DATE OF SERVICE: 04/15/2024 SURGEON: Skip Hutchinson MD INDICATIONS: Colon cancer screening. PREOPERATIVE DIAGNOSIS: POSTOPERATIVE DIAGNOSIS: PROCEDURE PERFORMED: Colonoscopy to the terminal ileum. ESTIMATED BLOOD LOSS: COMPLICATIONS: ANESTHESIA: Medications, monitored anesthesia care. ASSISTANTS: SPECIMENS: DESCRIPTION OF PROCEDURE: A history and physical performed. The risks and benefits of the procedure were explained to the patient. Informed consent was obtained. The patient was placed in the left lateral decubitus position. A digital rectal exam was performed and was found to be normal. The Olympus pediatric video colonoscope was introduced into the rectum and advanced to the cecum. The cecum was identified by transillumination, palpation, and identification of ileocecal valve. Examination was performed. The scope was removed. She tolerated the procedure well and was returned to recovery area in stable condition. FINDINGS: The terminal ileum was examined and appeared normal. The visualized colonic mucosa was normal. The quality of the prep was good. No polyps were identified. Retroflexed examination showed small internal hemorrhoids and a single hypertrophic anal papillae. IMPRESSION: Normal colonoscopy. RECOMMENDATION: 1. Follow up as needed. 2. Repeat colonoscopy is recommended in 10 years for average-risk individuals. This is optional after age 75. MD VERONICA Donald/PONCHO / [id number]
[2024-04-15 10:33] VITALS: BP 132/76; PULSE 65; RESP 18; TEMP 36.1; O2SAT 98
--- NOTE | 2024-04-15 10:39 | HO.POSTANES ---
Post Anesthesia Evaluation Post Anesthesia Evaluation Date of Service: 04/15/24 Vital Signs: Vital Signs Temp Pulse Resp BP Pulse Ox O2 Del Method 04/15/24 10:18 97.4 F 73 16 116/61 100 Room Air 04/15/24 08:50 97.8 F 70 16 127/62 98 Room Air Anesthesia: Monitored Mental Status: Awake Pain Control: Satisfactory Nausea/Vomiting: None Hydration: Adequate Anesthesia-Related Issues: No Anes. Related Issues
== END 2024-04-15 10:57 | disposition home or self-care (01) ==
PROVIDERS: PCP Internal Medicine; Visit Provider Internal Medicine Gastroenterology
PROC: 0DJD8ZZ Inspection of Lower Intestinal Tract, Via Natural or Artificial Opening Endoscopic (ICD-10-PCS; CPT 45378; principal; 2024-04-15 10:00)
DX: Z12.11 Encounter for screening for malignant neoplasm of colon (principal); K64.8 Other hemorrhoids; K62.89 Other specified diseases of anus and rectum; M81.0 Age-related osteoporosis without current pathological fracture; M15.9 Polyosteoarthritis, unspecified; E83.52 Hypercalcemia; Z79.1 Long term (current) use of non-steroidal anti-inflammatories (NSAID); Z87.891 Personal history of nicotine dependence
CPT/HCPCS: G0121; J2003; J2704

== ENCOUNTER 2024-07-01 10:08 | Outpatient (REF) | payer MEDICARE, SELFPAY ==
--- NOTE | ~2024-07-01 | MM_ITS ---
EXAMINATION: Dual-Energy X-ray Absorptiometry - Bone Density Study HISTORY: Estrogen deficiency TECHNIQUE: NPC III Dual energy absorptiometry (DEXA) of the lumbar spine, total left hip, and femoral neck was performed. COMPARISON: There are no prior studies for comparison. FINDINGS: The bone mineral density of the lumbar spine is 0.999 with a T-score of -1.5, and a Z-score of 0.0. The bone mineral density of the left total hip is 0.703 with a T-score of -2.4, and a Z-score of -1.2. The bone mineral density of the left femoral neck is 0.633 with a T-score of -2.9, and a Z-score of -1.4. The bone mineral density of the distal radius is 0.695 with a T score of -2.1, and a Z score of -0.5. FRACTURE RISK: The FRAX index suggests a risk of major osteoporotic fracture of 17.4%, and of hip fracture 5.2%. MM/XR DEXA appendicular skeleton IMPRESSION: Based on bone mineral density, and according to World Health Organization (WHO) criteria, the diagnosis is consistent with osteoporosis. All bone density values are in grams per centimeter squared. At this facility, the least significant change in BMD with 95% confidence is 0.022 at the lumbar spine, 0.027 at the hip, and 0.023 at the distal 1/3 radius. Electronically signed by: Terrence Arredondo MD 07/02/2024 09:41 AM EST
== END 2024-07-01 10:09 | disposition home or self-care (01) ==
LOC: HO.MAMMO 10:08
PROVIDERS: PCP Internal Medicine; Visit Provider Internal Medicine Endocrinology, Diabetes & Metabolism
DX: M81.0 Age-related osteoporosis without current pathological fracture (principal)
CPT/HCPCS: 77081

== ENCOUNTER → 2024-07-01 10:30 | Outpatient (BNV) | payer MEDICARE, SELFPAY | PROVIDERS: PCP Internal Medicine; Visit Provider Radiology Diagnostic Radiology | DX: M85.80 Other specified disorders of bone density and structure, unspecified site (principal) | CPT/HCPCS: 77081 ==

== ENCOUNTER 2024-08-04 10:45 | Outpatient (AMB) | payer MEDICARE, SELFPAY ==
[2024-08-04 10:47] VITALS: BP 124/72; BMI 26.5
--- NOTE | 2024-08-04 10:47 | MHC.OFFVIS ---
Vital Signs 08/04/24 10:47 Height 5 ft 4 in Weight 154 lb 5.177 oz BMI 26.5 BP 124/72 Blood Pressure Location Rt brachial Position Sitting Intake Visit Reasons: Osteoporosis/Confirmed Intake Note: Patient presents for osteporosis Allergies codeine [CODEINE] Adverse Reaction (Unknown, Verified 08/04/24 10:51) NAUSEA & VOMITING Medication List - Last Reconciled 08/04/24 by Terrence Booth MD ibuprofen 400 mg PO Q6H PRN HPI Comments Details: 68 YO Female with is seen in consultation at the request of PCP for Osteoporosis. First diagnosed in 10 yrs ago. Never saw endo . Not Received treatment in the past No history of pathologic fracture or ONJ. Has several servings of dietary calcium per day in the form of cheese, salmon . Takes Calcium supplement 1200 mg daily in divided doses. Takes ? IU of Vitamin D daily. Denies ever using PPI, anticoagulant, antiepileptic or glucocorticoid medication. 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 UTD on dental cleanings and sees dentist every 6 months. No planned upcoming dental work or extractions. DXA dated 06/29/22 :T-score L femoral neck = -2.6 Labs: Secondary workup was negative except recent labs showed increases in calcium. Repeat calcium and PTH at [facility] ([facility]) were normal suggesting spurious elevation in PTH from lab. Repeat DEXA on 07/05/2024 showed FINDINGS: The bone mineral density of the lumbar spine is 0.999 with a T-score of -1.5, and a Z-score of 0.0. The bone mineral density of the left total hip is 0.703 with a T-score of -2.4, and a Z-score of -1.2. The bone mineral density of the left femoral neck is 0.633 with a T-score of -2.9, and a Z-score of -1.4. The bone mineral density of the distal radius is 0.695 with a T score of -2.1, and a Z score of -0.5. FRACTURE RISK: The FRAX index suggests a risk of major osteoporotic fracture of 17.4%, and of hip fracture 5.2%. PFSH Medical History History of shingles Elevated C-reactive protein (CRP) Polyarthralgia Hypercalcemia Osteoporosis Surgical History H/O oral surgery H/O wisdom tooth extraction H/O hand surgery H/O colonoscopy History of right hip replacement Hx of tonsillectomy Hx of section Family History Father Prostate cancer Bone cancer Mother Cancer Brother Mental health disorder Sister Ovarian cancer Family/Other Multiple sclerosis Son Substance use disorder Social History Household Members: Spouse Household Members Other:: Housing: House Alcohol intake: current Alcohol type: wine Patient Tobacco Use Status: Former Tobacco user e-Cigarette/Vaping Use: Never Used service: No Current occupational status: employed 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 Workup showed mild hypercalcemia. Repeat labs at [facility] showed normal calcium and PTH Plan is to consider treatment of the osteoporosis perhaps with a anti resorptive agent like an oral bisphosphonate, intravenous bisphosphonate or Prolia. After careful discussion with the patient, it was decided to start alendronate 70 mg Q weekly. I went over how to properly take alendronate I went over the side effects of alendronate with the patient. Side effects included but not limited to joint pains, rare risk of avascular necrosis of the jaw . and atypical femur fracture. Will check urine NTX in 5 months' time have patient follow up in 6 months. My goal is to have patient take alendronate for about 2-3 years time and then hopefully establish drug holiday Orders: Orders Collagen Cross-linked,24U 5 Months M81.0 - Age-related osteoporosis without current pathological fracture Medications: New alendronate 70 mg PO QWEEK 5 tabs 5RF Coding Level of Care Code Est Pt Level 3 (97959) Diagnoses Age-related osteoporosis without current pathological fracture M81.0 Osteoporosis type: age-related Presence of current pathological fracture: without current pathological fracture
== END 2024-08-04 11:29 | disposition home or self-care (01) ==
PROVIDERS: PCP Internal Medicine; Visit Provider Internal Medicine Endocrinology, Diabetes & Metabolism
DX: M81.0 Age-related osteoporosis without current pathological fracture (principal)
CPT/HCPCS: 99213

== ENCOUNTER → 2024-08-04 10:45 | Outpatient (BNVA) | payer MEDICARE, SELFPAY | PROVIDERS: PCP Internal Medicine; Visit Provider Internal Medicine Endocrinology, Diabetes & Metabolism | DX: M81.0 Age-related osteoporosis without current pathological fracture (principal) | CPT/HCPCS: 99212 ==

== ENCOUNTER 2024-12-23 09:25 | Outpatient (AMB) | payer MEDICARE, SELFPAY ==
--- NOTE | 2024-12-23 09:43 | AM.OFFVISMDC ---
Intake Vital Signs 12/23/24 09:44 Height 5 ft 4 in Weight 148 lb BMI 25.4 BP 110/72 Blood Pressure Location Rt brachial Position Sitting Respiration 16 Pulse 89 Pulse Source Pulse Oximeter Temp 98.1 F Temp Source Oral Pulse Oximetry (%) 96 Oxygen Delivery Method Room Air Intake Visit Reasons: AWV Intake Note: Pt is here today for her AWV: mammogram 12/11/23, bone density scan 07/01/24, colonoscopy 04/11/24 Allergies codeine (CODEINE) Adverse Reaction (Unknown, Verified 12/23/24 10:25) NAUSEA & VOMITING Medication List - Last Reconciled 12/23/24 by Pauly Fiore MD alendronate 70 mg PO QWEEK calcium citrate-vitamin D3 315 mg-6.25 mcg (250 unit) (Citracal + Vitamin D Maximum) 1 tab PO DAILY glucosamine HCl 1,500 mg PO DAILY ibuprofen 400 mg PO Q6H PRN HPI AWV HPI Details AWV ? 69 year old lady presents for her ? Annual Wellness Visit, subsequent visit.? She is up-to-date with bone density scan done, last done 07/01/2024 which showed presence of osteoporosis in left femoral neck,seen by Dr. Booth,, who started patient on alendronate 70 mg once a week. She is up-to-date with her screening mammogram scheduled for a repeat mammogram this month. She is up-to-date with her screening colonoscopy done by Dr. Hutchinson 04/16/2024 which showed normal findings, no further screening indicated. She had a normal fasting glucose check done 2023, and last fasting lipids was checked in 2022. Has had up-to-date vaccines in the past but does not want to get the booster nor does she want to get a flu shot. Reminded to get her Shingrix vaccine for protection against herpes zoster. Up-to-date with her pneumonia vaccine ? Medical / Social History Reviewed? Past Medical History ?Yes . ? [place] of Care / Care Team list updated ?Yes . ? Surgical/Hospitalization History ?Yes . ? Current Medications (including OTC and supplements) ?Yes . ? Family History ?Yes . ? Tobacco Control form ?Yes . ? AUDIT-C (Alcohol use) form ?Yes . ? Illicit drug use in Social History ?Yes . ? Current diagnosis of depression? ?No ? Appropriate PHQ2/PHQ9 completed ?Yes . ? Data entered by ?[employer] Keyboard Operator and reviewed by provider ? Fall Risk ? Fall History? Have you had any falls with injury in the past year? ?No . ? Have you had two or more falls in the past year? ?No . ? Fall Risk Assessment: ?No falls in the past year . ? HRA filled out by the patient, reviewed by Provider and scanned. ?AWV ? Balance? Romberg ?negative. ? Tandem walk ?Yes . ? Walk and Turn ?Yes . ? Rise from sit to stand ?Yes . ?Vision? Corrective lens ?Yes ? Vision screen ? Up-to-date, goes to [facility] for her routine eye exam ?Hearing? Whisper test ?pass . ?Written Plan?Completed. See Patient Documents.? [facility] Medical History (Updated 12/23/24 @ 10:30 by Pauly Fiore MD) History of shingles Elevated C-reactive protein (CRP) Polyarthralgia Hypercalcemia Osteoporosis Surgical History H/O oral surgery H/O wisdom tooth extraction H/O hand surgery H/O colonoscopy History of right hip replacement Hx of tonsillectomy Hx of section Family History Father Prostate cancer Bone cancer Mother Cancer Brother Mental health disorder Sister Ovarian cancer Family/Other Multiple sclerosis Son Substance use disorder Social History Household Members: Spouse Household Members Other:: Housing: House Alcohol intake: current Alcohol type: wine Patient Tobacco Use Status: Former Tobacco user e-Cigarette/Vaping Use: Never Used service: No Current occupational status: employed 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 Cognitive needs: No Hearing needs: No Vision needs: Yes Questionnaire Medicare Wellness Checkup What [age] What gender do you identify with?: female During the past 4 weeks, how much have you been bothered by emotional problems such as feeling anxious, depressed, irritable, sad or downhearted, and blue?: not at all During the past 4 weeks, has your physical & emotional health limited your social activities with family, friends, neighbors, or groups?: not at all During the past 4 weeks, how much bodily pain have you generally had?: moderate pain During the past 4 weeks, was someone available to help you if you needed & wanted help?: yes, as much as I wanted During the past 4 weeks, what was the hardest physical activity you could do for at least 2 minutes?: very heavy Can you get to places out of walking distance without help? (For eg., can you travel alone on buses, taxis or drive your car?): Yes Can you go shopping for groceries or clothes without someone's help?: Yes Can you prepare your own meals?: Yes Can you do your housework without help?: Yes Because of any health problems, do you need the help of another person with your personal care needs such as eating, bathing, dressing or getting around the house?: No Can you handle your own money without help?: Yes During the past 4 weeks, how would you rate your health in general?: very good During the past 4 weeks how have things been going for you?: very well; could hardly better Are you having difficulties driving your car?: no Do you always fasten your seat belt when you are in a car?: yes, usually During past 4 weeks, have you been bothered by the following: never: Falling or dizzy when standing up, Sexual problems?, Trouble eating well?, Teeth or denture problems?, Problems using the telephone? and Tiredness or fatigue? Have you fallen 2 or more times in the past year?: No Are you afraid of falling?: No During the past 4 weeks, how many drinks of wine, beer, or other alcoholic beverages did you have?: 2-5 drinks per week Do you exercise for about 20 minutes 3 or more times a week?: yes, most of the time Have you been given information to help with the following?: no: Hazards in your house that might hurt you? and no: Keeping track of your medications? How often do you have trouble taking medicines the way you have been told to take them?: I do not have to take medicine How confident are you that you can control & manage most of your health problems?: very confident What is your race?: White Mini Mental State Exam (MMSE) Orientation What is the (year) (season) (date) (day) (month)?: year (2024), season (Summer), date (12/23/2024), day (Sunday) and month (December) Where are we (state) (county) (town or city) (hospital) (floor)?: state ([place]), [facility] ([place]), town or city ([place]) and hospital/clinic ([facility]) Score Score: 9 Activity of Daily Living Bathing - sponge bath, tub bath or shower: receives no assistance (gets in/out by self, if usual bathing means Dressing - getting clothes from closets & drawers, including inner/outer garments & fasteners.: gets clothes & gets completely dressed without help Toileting - going to the 'toilet room' for urine/bowel elimination & cleaning self/arranging clothes: goes to toilet room, cleans self, arranges clothes without help Transfer: moves in & out of bed and chair without help (may use support object) Continence: controls urination/bowel movements completely by self Feeding: feeds self without help Total Score: 0 Information obtained from: patient Using telephone: independent Traveling: independent Shopping: independent Preparing meals: independent Housework: independent Taking medicine: independent Managing money: independent PHQ-9 Over the last 2 weeks, how often have you been bothered by any of the following problems? 1. Little interest or pleasure in doing things: not at all 2. Feeling down, depressed, or hopeless: not at all 3. Trouble falling or staying asleep, or sleeping too much: not at all 4. Feeling tired or having little energy: not at all 5. Poor appetite or overeating: not at all 6. Feeling bad about yourself - or that you are a failure or have let yourself or your family down: not at all 7. Trouble concentrating on things, such as reading the newspaper or watching television: not at all 8. Moving or speaking so slowly that other people could have noticed. Or the opposite - being so fidgety or restless that you have been moving around a lot more than usual: not at all 9. Thoughts that you would be better off or of hurting yourself in some way: not at all Total score: 0 Depression Screening Interpretation: Negative Depression Screening Done: Yes 25578 - PHQ-9 Billing: Yes Source: Developed by Drs. Terrence Lomax, Nori Hay, Ceasar Roldan and colleagues, with an educational davin from [employer]. Physical Exam Vital Signs: Last Vital Signs Temp 98.1 F 12/23/24 09:44 Pulse 89 12/23/24 09:44 Resp 16 12/23/24 09:44 BP 110/72 12/23/24 09:44 Pulse Ox 96 12/23/24 09:44 Oxygen Delivery Method Room Air 12/23/24 09:44 BMI result Body Mass Index 25.4 Assessment & Plan Assessment & Plan (1) Osteoporosis: Code(s): M81.0 - Age-related osteoporosis without current pathological fracture Qualifiers: Osteoporosis type: age-related Presence of current pathological fracture: without current pathological fracture Qualified Code(s): M81.0 - Age-related osteoporosis without current pathological fracture Plan: Currently taking alendronate 70 mg once a week and takes calcium and vitamin-D 3 supplements (2) Encounter for subsequent annual wellness visit (AWV) in Medicare patient: Code(s): Z00.00 - Encounter for general adult medical examination without abnormal findings Plan: Medical wellness checklist reviewed, discussed with patient and updated. Up-to-date with all her vaccines, and screenings. A fasting lipid panel was ordered which is due Copy given (3) Polyarthralgia: Code(s): M25.50 - Pain in unspecified joint Plan: She takes glucosamine HCl 1500 mg daily and takes an occasional ibuprofen as needed for joint pain Orders: Orders Lipid Panel 12/23/24 Z13.220 - Encounter for screening for lipoid disorders Quality Reporting (2019) Depression/Bipolar (159/160/161/177) PHQ-9: Total score: 0 Coding Level of Care Code Medicare Subsequent (G0439) Diagnoses Age-related osteoporosis without current pathological fracture M81.0 Osteoporosis type: age-related Presence of current pathological fracture: without current pathological fracture Encounter for subsequent annual wellness visit (AWV) in Medicare patient Z00.00 Polyarthralgia M25.50 CPT Codes Advance Care Planning - Advance Care Planning discussion: On file, no changes ([id number]) Advance Care Planning - Time spent: 1-15 minutes, on File ([id number]) Additional Codes PHQ-9 - 67188 - PHQ-9 Billing: Yes ([id number]) Advance Care Planning Advance Care Planning discussion: On file, no changes Date of discussion: 12/23/24 Who was present: Patient Forms completed: Health Care Proxy and MOLST Time spent: 1-15 minutes, on File Actual minutes spent: 2
[2024-12-23 09:44] VITALS: BP 110/72; PULSE 89; RESP 16; TEMP 36.7; O2SAT 96; BMI 25.4
--- OUTSIDE RECORDS SUMMARY | 2024-12-23 10:04 | XMS_ITS | Patient Health Record ---
Author Organization [facility] Address [address] [place] [address] Care Team Providers Care Ocean Import Representative Name Role Phone Macarena BARRGAAN, Pauly Primary Care Provider Skip Gambino Jr Unavailable Allergies Allergen (clinical drug ingredient) Drug/Non Drug Allergy documented on EMR Reaction Allergy Type Onset Date Status codeine codeine (uncoded) Unknown Allergy Ac tive Reason For Referral No Information Medications Medication SIG (Take, Route, Frequency, Duration) Notes Start Date End Date Status MiraLax (colon prep) 17 GM/SCOOP mixed with Gatorade or Crystal Light Orally begin at 5:00 p.m. the day before the procedure for 1 day 03/19/2024 Active Ibuprofen 200 MG 1 tablet with food o r milk as needed Orally Three times a day Active Immunizations Vaccine Route Administration Date Status Comme nts Influenza Unknown 03/19/2024 Refused Social History Tobacco Use: Social History Observation Description Date Details (start date - stop date) Former Smoker NA - NA Tobacco Use/Smoking Question Answer Notes Patient is a former smoker Alcohol Screen Question Answer Notes Did you have a drink contain ing alcohol in the past year? Yes How often did you have a dri nk containing alcohol in the past year? Monthly or less (1 point) How many drinks did you have on a typical day when you were drinking in the past year? 1 or 2 drinks (0 point) How often did you have 6 or more drinks on one occasion in the past year? Never (0 point) Points 1 Interpretation Negative Section Notes: Tobacco use is one pack per day, alcohol use is 2-3 drinks per day. Problems Problem Type SNOMED Code ICD Code Onset Dates Problem Status W/U Status Risk Notes Problem Screening for malignant neoplasm of colon (518339944) Special screening for malignant neoplasms, colon (V76.51) Active confirmed Problem 070743031 Colon cancer screening (Z12.11) Active confirmed Problem 738046523212310 Encounter for long-term (current) use of NSAIDs (Z79.1) Active confirmed Vital Signs Temperature 97.3 degrees Fahrenheit 03/19/2024 Blood pressure diastolic 00 mm Hg 03/19/2024 Height 64 in 03/19/2024 Blood pressure systolic 000 mm Hg 03/19/2024 Weight 153 lb 4 oz lbs 03/19/2024 BMI 26.30 kg/m2 03/19/2024 Encounters Encounter Location Date Provider Diagnosis [facility] [place] Outpatient [address], [place] [phone] 04/15/2024 Skip Hutchinson Jr Colon cancer screening Z12.11 [facility] [address] [facility] [address] [place] [address] 03/19/2024 Skip Hutchinson Jr Encounter for long-term (current) use of NSAIDs Z79.1 and Colon cancer screening Z12.11 Assessments Encounter Date Diagnosis (ICD Code) Assessment Notes Treatment Notes Treatment Clinical Notes Section Notes 04/15/2024 Colon cancer screening (ICD-10 - Z12.11) 03/19/2024 Colon cancer screening (ICD-10 - Z12.11) Colonoscopy material was printed We discussed colonoscopy today. We discussed risks and benefits of the procedure today. She understands these and agrees to proceed. She is advised to stop ibuprofen one week before the procedure. 03/19/2024 Encounter for long-term (current) use of NSAIDs (ICD-10 - Z79.1) We discussed colonoscopy today. We discussed risks and benefits of the procedure today. She understands these and agrees to proceed. She is advised to stop ibuprofen one week before the procedure. Plan Of Treatment Future Test Test Name Order Date COLONOSCOPY 03/19/2024 Insurance Providers Payer Name Payer Address Payer Phone Subscriber Number Group Number Insured Name Patient Relationship to Insured Coverage Start Date Coverage End Date MEDICARE OF [place] [address] [place] [phone] [id number] DESMOND HESTER Self - patient is the insured MEDEX ATT[employer] CLAIMS [address] [place] [address] [phone] [id number] DESMOND HESTER Self - patient is the insured Medical (General) History Medical History History ICD Code Osteoarthritis Osteoporosis Hypercalcemia Colonoscopy 2011, hyperplastic polyps, t en-year followup Surgical History Surgery Date(Month/Year)
== END 2024-12-23 10:58 | disposition home or self-care (01) ==
LOC: HO.HMCC 09:26
PROVIDERS: PCP Internal Medicine; Visit Provider Internal Medicine
DX: Z00.00 Encounter for general adult medical examination without abnormal findings (principal); M81.0 Age-related osteoporosis without current pathological fracture; M25.50 Pain in unspecified joint

== ENCOUNTER 2024-12-23 09:25 | Outpatient (REF) | payer MEDICARE, SELFPAY ==
[2024-12-23 13:42] LABS: Cholesterol 243 mg/dL (<200); HDL Cholesterol 133 mg/dL (>40); Triglycerides 53 mg/dL (<150)
== END 2024-12-23 09:26 | disposition home or self-care (01) ==
LOC: HO.HMGCLDS 09:25
PROVIDERS: PCP Internal Medicine; Visit Provider Internal Medicine
DX: Z00.00 Encounter for general adult medical examination without abnormal findings (principal); M81.0 Age-related osteoporosis without current pathological fracture; M25.50 Pain in unspecified joint; Z13.220 Encounter for screening for lipoid disorders
CPT/HCPCS: 36415; 80061; 96127

== ENCOUNTER 2025-01-15 10:25 | Outpatient (REF) | payer MEDICARE, SELFPAY ==
--- OUTSIDE RECORDS SUMMARY | 2025-01-15 11:15 | XMS_ITS | Patient Health Record ---
Author Organization [facility] Address [address] [place] [address] Care Team Providers Care Garage Helper Name Role Phone Macarena BARRAGAN, Pauly Primary Care Provider Skip Gambino Jr Unavailable [phone] Allergies Allergen (clinical drug ingredient) Drug/Non Drug [...] Problem Screening for malignant neoplasm of colon (667764608) Special screening for malignant neoplasms, colon (V76.51) Active confirmed Problem 552277678 Colon cancer screening (Z12.11) Active confirmed Problem 359948456949649 Encounter for long-term (current) use of NSAIDs (Z79.1) Active confirmed Vital Signs Temperature 97.3 degrees Fahrenheit 03/19/2024 Blood pressure diastolic 00 mm Hg 03/19/2024 Height 64 in 03/19/2024 Blood pressure systolic 000 mm Hg 03/19/2024 Weight 153 lb 4 oz lbs 03/19/2024 BMI 26.30 kg/m2 03/19/2024 Encounters Encounter Location Date Provider Diagnosis [facility] [place] [address] [place], [place] [phone] 04/15/2024 Skip Hutchinson Jr Colon cancer screening Z12.11 [facility] [address] [facility] [address] [place] [address] 03/19/2024 Skip Hutchinson Jr Encounter for long-term [...] [place] [address] [place] [address] [phone] [id number] DESMOND HESTER Self - patient is the insured MED[employer] ATT[employer] CLAIMS [address] [place] [address] [id number] DESMOND HESTER Self - patient is the insured Medical (General) History Medical History History ICD Code Osteoarthritis Osteoporosis Hypercalcemia Colonoscopy 2011, hyperplastic polyps, t en-year followup Surgical History Surgery Date(Month/Year)
== END 2025-01-15 10:26 | disposition home or self-care (01) ==
LOC: HO.MAMMO 10:25
PROVIDERS: PCP Internal Medicine; Visit Provider Internal Medicine
DX: Z12.31 Encounter for screening mammogram for malignant neoplasm of breast (principal)
CPT/HCPCS: 77063; 77067

== ENCOUNTER → 2025-01-15 10:45 | Outpatient (BNV) | payer MEDICARE, SELFPAY | PROVIDERS: PCP Internal Medicine; Visit Provider Internal Medicine | DX: Z12.31 Encounter for screening mammogram for malignant neoplasm of breast (principal) | CPT/HCPCS: 77063; 77067 ==

== ENCOUNTER 2025-01-29 11:39 | Outpatient (REF) | payer MEDICARE, SELFPAY ==
--- OUTSIDE RECORDS SUMMARY | 2025-01-29 12:16 | XMS_ITS | Patient Health Record ---
Author Organization [facility] Address [address] [place] [address] Care Team Providers Care Heater Helper Name Role Phone Macarena BARRAGAN, Pauly [...] Problem Screening for malignant neoplasm of colon (961461046) Special screening for malignant neoplasms, colon (V76.51) Active confirmed Problem 947633559 Colon cancer screening (Z12.11) Active confirmed Problem 687104988444425 Encounter for long-term (current) use of NSAIDs (Z79.1) Active confirmed Vital Signs Temperature 97.3 degrees Fahrenheit 03/19/2024 Blood pressure diastolic 00 mm Hg 03/19/2024 Height 64 in 03/19/2024 Blood pressure systolic 000 mm Hg 03/19/2024 Weight 153 lb 4 oz lbs 03/19/2024 BMI 26.30 kg/m2 03/19/2024 Encounters Encounter Location Date Provider Diagnosis [facility] [place] Outpatient [address] [place], [place] [phone] 04/15/2024 Skip Hutchinson Jr Colon cancer screening Z12.11 [facility] [address] [facility] [address] [place] [address] 03/19/2024 Skip Hutchinson Jr Encounter for long-term [...] [place] [address] [place] [address] [phone] [id number] DESMOND HESTER Self - patient is the insured MED[employer] ATTN CLAIMS [address] [place] [address] [phone] [id number] DESMOND HESTER Self - patient is the insured Medical (General) History Medical History History ICD Code Osteoarthritis Osteoporosis Hypercalcemia Colonoscopy 2011, hyperplastic polyps, t en-year followup Surgical History Surgery Date(Month/Year)
[2025-02-05 06:18] LABS: NTXCreaRU 40 mg/dL (20-275)
== END 2025-01-29 11:40 | disposition home or self-care (01) ==
LOC: HO.LNP 11:39
PROVIDERS: Visit Provider Internal Medicine Endocrinology, Diabetes & Metabolism
DX: M81.0 Age-related osteoporosis without current pathological fracture (principal)
CPT/HCPCS: 82523

== ENCOUNTER 2025-02-04 14:44 | Outpatient (AMB) | payer MEDICARE, SELFPAY ==
--- OUTSIDE RECORDS SUMMARY | 2025-02-04 14:51 | XMS_ITS | Patient Health Record ---
Author Organization [facility] Address [address] [place] [address] Care Team Providers Care Sheep Farmer Name Role Phone Macarena BARRAGAN, Pauly Primary [...] Problem Screening for malignant neoplasm of colon (757187979) Special screening for malignant neoplasms, colon (V76.51) Active confirmed Problem 401014731 Colon cancer screening (Z12.11) Active confirmed Problem 613295420287607 Encounter for long-term (current) use of NSAIDs (Z79.1) Active confirmed Vital Signs Temperature 97.3 degrees Fahrenheit 03/19/2024 Blood pressure diastolic 00 mm Hg 03/19/2024 Height 64 in 03/19/2024 Blood pressure systolic 000 mm Hg 03/19/2024 Weight 153 lb 4 oz lbs 03/19/2024 BMI 26.30 kg/m2 03/19/2024 Encounters Encounter Location Date Provider Diagnosis [facility] [address] [place], [place] [phone] 04/15/2024 Skip Hutchinson Jr Colon cancer screening Z12.11 [facility] [address] [facility] [address] [place] [address] 03/19/2024 Skip Hutchinson Jr Encounter for long-term [...] [place] [address] [place] [address] [phone] [id number] DESMOND HESTER Self - patient is the insured MED[employer] ATTN CLAIMS [address] [place] [address] [id number] DESMOND HESTER Self - patient is the insured Medical (General) History Medical History History ICD Code Osteoarthritis Osteoporosis Hypercalcemia Colonoscopy 2011, hyperplastic polyps, t en-year followup Surgical History Surgery Date(Month/Year)
[2025-02-04 14:53] VITALS: BP 106/78; PULSE 72; O2SAT 98; BMI 25.0
--- NOTE | 2025-02-04 14:53 | A.OFFVIS_ITS ---
Vital Signs 02/04/25 14:53 Height 5 ft 4 in Weight 145 lb 8.081 oz BMI 25.0 BP 106/78 Blood Pressure Location Rt brachial Position Sitting Pulse 72 Pulse Source Pulse Oximeter Pulse Oximetry (%) 98 Oxygen Delivery Method Room Air Intake Visit Reasons: Osteoporosis Intake Note: Patient present today for Age-related osteoporosis. 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 First diagnosed in 10 yrs ago. Never saw endo . Not Received treatment in the past No history of pathologic fracture or ONJ. Has several servings of dietary calcium per day in the form of cheese, salmon . Takes Calcium supplement 1200 mg daily in divided doses. Takes ? IU of Vitamin D daily. Denies ever using PPI, anticoagulant, antiepileptic or glucocorticoid medication. 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 UTD on dental cleanings and sees dentist every 6 months. No planned upcoming dental work or extractions. DXA dated 06/29/22 :T-score L femoral neck = -2.6 Labs: Secondary workup was negative except recent labs showed increases in calcium. Repeat calcium and PTH at [facility] ([facility]) were normal suggesting spurious elevation in PTH from lab. Repeat DEXA on 07/05/2024 showed FINDINGS: The bone mineral density of the lumbar spine is 0.999 with a T-score of -1.5, and a Z-score of 0.0. The bone mineral density of the left total hip is 0.703 with a T-score of -2.4, and a Z-score of -1.2. The bone mineral density of the left femoral neck is 0.633 with a T-score of -2.9, and a Z-score of -1.4. The bone mineral density of the distal radius is 0.695 with a T score of -2.1, and a Z score of -0.5. FRACTURE RISK: The FRAX index suggests a risk of major osteoporotic fracture of 17.4%, and of hip fracture 5.2%. The patient is a 69-year-old female presenting for osteoporosis management and follow-up. She is currently taking alendronate and tolerating it well without any adverse effects such as reflux. The patient has not experienced any fractures since her last visit. A bone turnover marker test is pending, which is expected to take up to four weeks for results. The patient had a bone density test in June 2024, and the next one is scheduled for June 2026. [facility] Medical History History of shingles Elevated C-reactive protein (CRP) Polyarthralgia Hypercalcemia Osteoporosis Surgical History H/O oral surgery H/O wisdom tooth extraction H/O hand surgery H/O colonoscopy History of right hip replacement Hx of tonsillectomy Hx of section Family History Father Prostate cancer Bone cancer Mother Cancer Brother Mental health disorder Sister Ovarian cancer Family/Other Multiple sclerosis Son Substance use disorder Social History Household Members: Spouse Household Members Other:: Housing: House Alcohol intake: current Alcohol type: wine Patient Tobacco Use Status: Former Tobacco user e-Cigarette/Vaping Use: Never Used service: No Current occupational status: employed 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 Cognitive needs: No Hearing needs: No Vision needs: Yes Physical Exam Vital Signs: Last Vital Signs Pulse 72 02/04/25 14:53 BP 106/78 02/04/25 14:53 Pulse Ox 98 02/04/25 14:53 Oxygen Delivery Method Room Air 02/04/25 14:53 BMI result Body Mass Index 25.0 Assessment & Plan Assessment & Plan (1) Osteoporosis: Code(s): M81.0 - Age-related osteoporosis without current pathological fracture Category: Medical Qualifiers: Osteoporosis type: age-related Presence of current pathological fracture: without current pathological fracture Qualified Code(s): M81.0 - Age- related osteoporosis without current pathological fracture Plan: This 67-year-old white female found to have osteoporosis. Workup showed mild hypercalcemia. Repeat labs at [facility] showed normal calcium and PTH. Currently on alendronate 70 mg Q weekly. Urine NTX is pending Plan is to check urine NTX when available and continue alendronate. We will repeat DEXA in 06/2026 1. Osteoporosis The patient is currently on alendronate, which she tolerates well without adverse effects such as reflux. A bone turnover marker test is pending, and the next bone density test is scheduled for June 2026. The plan is to continue alendronate and reassess based on the bone density results in 2026. If the bone density improves, consideration will be given to discontinuing alendronate after two to three years. During the visit, we discussed the ongoing management of osteoporosis with alendronate, which the patient is tolerating well. We reviewed the pending bone turnover marker test and the schedule for the next bone density test in June 2026. I advised the patient to continue with her current medication regimen and to monitor for any changes in her condition, such as fractures, which would necessitate an earlier follow-up. - Continue taking alendronate as prescribed. - Schedule and complete the bone turnover marker test four weeks before the next appointment. - The patient had an opportunity to ask questions regarding treatment plan. The patient expressed understanding and agreement with the above treatment plan. Patient was informed and verbally consented to the use of an ambient scribe for clinic note documentation during this visit. Orders: Orders Collagen Crosslinks NTX 1 Year M81.0 - Age-related osteoporosis without current pathological fracture Coding Level of Care Code Est Pt Level 3 (62320) Diagnoses Age-related osteoporosis without current pathological fracture M81.0 Osteoporosis type: age-related Presence of current pathological fracture: without current pathological fracture
== END 2025-02-04 15:21 | disposition home or self-care (01) ==
LOC: HO.ENCR 14:44
PROVIDERS: PCP Internal Medicine; Visit Provider Internal Medicine Endocrinology, Diabetes & Metabolism
DX: M81.0 Age-related osteoporosis without current pathological fracture (principal)
CPT/HCPCS: 99213

== ENCOUNTER → 2025-02-04 14:44 | Outpatient (BNVA) | payer MEDICARE, SELFPAY | PROVIDERS: PCP Internal Medicine; Visit Provider Internal Medicine Endocrinology, Diabetes & Metabolism | DX: M81.0 Age-related osteoporosis without current pathological fracture (principal); Z79.83 Long term (current) use of bisphosphonates | CPT/HCPCS: 99212 ==